=== PATIENT | male | born 1955 | race Caucasian/White ===

== ENCOUNTER 2016-10-11 11:37 | Day surgery (SDC) | payer MEDICAID ==
[2016-10-10 10:47] VITALS: BMI 27.0
[~2016-10-11 11:37] MED LIST: LACTATED RINGERS 1,000 ML IV SCH; LIDOCAINE 1% 20 ML VIAL (10MG/ML) FOR IV START INTRADERMA PRN
[2016-10-11 11:56] VITALS: RESP 16; TEMP 97.8
[2016-10-11] MEDS ORDERED: PROPOFOL 10 MG/ML 20 ML VIAL IV ONE (13:05)
--- NOTE | 2016-10-11 13:25 | P.OP ---
Date of Procedure: 10/11/16 Preoperative Diagnosis: Screening for colon cancer Postoperative Diagnosis: SLightly enlarged prostate NOrmal colon Procedure(s) Performed: Colonoscopy Anesthesia: EDWIN Surgeon: Morenita Law Condition: stable Disposition: PACU Operative Findings: Normla colon Fair to poor prep (poor prep in right colon, fair in the left side) slightly enlarged prostate Description of Procedure: The patient was brought to the endoscopy suite and placed in lateral decubitus position. IV sedation was given as per anesthesia team. A timeout was performed to verify correct patient and correct procedure.Perianal examination did not reveal any external hemorrhoids. Digital rectal examination was performed. A well-lubricated endoscope was passed per rectally and was gradually advanced beyond the sigmoid colon, splenic flexure, transverse colon, hepatic flexure and cecum. The ileocecal valve was visualized. Then no diverticulosis . Scope was gradually withdrawn inspecting all the mucosal surfaces. No polyps. Prep was poor in the right side and fair in the left side. Retroflexed in the rectum and was normal. The scope was gradually withdrawn. Patient tolerated the procedure well and was taken to post anesthesia care unit in stable condition. Recommend repeat colonoscopy in 5 years due to poor prep
[2016-10-11 13:49] VITALS: BP 126/79; PULSE 73
== END 2016-10-11 14:04 | disposition home or self-care (01) ==
LOC: ORWHC2ENDO 11:37
PROVIDERS: ATTEND Surgery
DX: Z12.11 Encounter for screening for malignant neoplasm of colon (principal); N40.0 Benign prostatic hyperplasia without lower urinary tract symptoms; F17.200 Nicotine dependence, unspecified, uncomplicated
CPT/HCPCS: J2704; G0121; 99153

== ENCOUNTER 2018-03-24 09:47 | Inpatient (IN) | payer MEDICAID ==
[2018-03-24] MEDS ORDERED: SODIUM CHLORIDE 0.9% 1,000 ML IV STA (09:51)
[2018-03-24 09:55] VITALS: RESP 18
--- NOTE | 2018-03-24 10:00 | ED ---
General Adult HPI - General Chief complaint: Neuro Symptoms/Deficit Stated complaint: poss cva Time Seen by Provider: 03/24/18 09:51 Source: patient, EMS, RN notes reviewed Mode of arrival: EMS Limitations: no limitations - History of Present Illness Initial comments: Patient is a pleasant 62-year-old male presenting to the emergency department with concern for stroke. EMS provides majority of history. Onset is reported at 9 AM. Patient felt fine earlier. Patient had reported sudden onset of symptoms. When EMS arrived patient was near unresponsive and only could verbalize "yes". Patient had bilateral arm weakness. Patient has significantly improved per EMS. Patient does have expressive aphasia. Patient does appear to understand well and when able to get the words out does answer appropriately. Patient is agreeable that onset of symptoms was around 9 AM and he felt fine prior to that. No history of similar symptoms previously. Patient states he does understand things well and agrees that he has difficulty getting his words out. Patient states he does not feel any weakness. No significant pain. Patient states he does not feel confused. - Related Data Home Medications Medication Instructions Recorded Confirmed No Known Home Medications [No 10/10/16 03/24/18 Known Home Medications] Allergies Allergy/AdvReac Type Severity Reaction Status Date / Time No Known Allergies Allergy Verified 03/24/18 10:08 Review of Systems ROS Statement: Those systems with pertinent positive or pertinent negative responses have been documented in the HPI. ROS Other: All systems not noted in ROS Statement are negative. Constitutional: Denies: fever Eyes: Denies: eye pain ENT: Denies: ear pain Respiratory: Denies: cough Cardiovascular: Denies: chest pain Endocrine: Denies: fatigue Gastrointestinal: Denies: abdominal pain Genitourinary: Denies: dysuria Musculoskeletal: Denies: back pain Skin: Denies: rash Neurological: Denies: headache, weakness, confusion Past Medical History Past Medical History: No Reported History History of Any Multi-Drug Resistant Organisms: None Reported Past Surgical History: Hernia Repair, Orthopedic Surgery Additional Past Surgical History / Comment(s): lt knee miniscus repair,bone chips lt ankle Past Anesthesia/Blood Transfusion Reactions: No Reported Reaction Additional Past Anesthesia/Blood Transfusion Reaction / Comment(s): no hx blood transfusion Past Psychological History: No Psychological Hx Reported Smoking Status: Current every day smoker Past Alcohol Use History: Occasional Past Drug Use History: None Reported - Past Family History Mother Family Medical History: Cancer Father Family Medical History: No Reported History General Exam Limitations: no limitations General appearance: alert, in no apparent distress, other (Patient has expressive aphasia. Patient is alert and very cooperative. Patient does have difficulty following some commands. Example includes difficulty with finger- nose test however he is able to perform the function when he does completed. Patient also told to lift and hold his leg and lifted and held his arm.) Head exam: Present: atraumatic Eye exam: Present: normal appearance, PERRL, EOMI. Absent: nystagmus ENT exam: Present: normal oropharynx Neck exam: Present: normal inspection Respiratory exam: Present: normal lung sounds bilaterally Cardiovascular Exam: Present: regular rate, normal rhythm GI/Abdominal exam: Present: soft. Absent: tenderness Extremities exam: Present: normal inspection Neurological exam: Present: alert, oriented X3, CN II-XII intact (Except for right facial droop). Absent: motor sensory deficit Expanded Neurological exam: Present: protecting the airway Patient oriented to: Present: person, place, time Speech: Present: expressive aphasia Cranial nerves: EOM's Intact: Normal, Facial Sensation: Normal, Facial Palsy with Forehead Movement: Abnormal Right Cerebellar function: Finger to Nose: Normal Sensory exam: Upper Extremity Light Touch: Normal, Lower Extremity Light Touch: Normal Motor strength exam: RUE: 5, LUE: 5, RLE: 5, LLE: 5 Eye Response: (4) open spontaneously Motor Response: (6) obeys commands Verbal Response: (5) oriented Psychiatric exam: Present: normal affect, normal mood Skin exam: Present: normal color Course Vital Signs 03/24/18 03/24/18 03/24/18 09:51 10:00 10:15 Temperature 97.8 F Pulse Rate 84 89 77 Respiratory 18 18 18 Rate Blood Pressure 161/107 146/92 164/97 O2 Sat by Pulse 98 99 Oximetry - Reevaluation(s) Reevaluation #1: 03/24/18 10:03 Further history taken from the who does confirm majority of the history. She does add however that last known well was 5:30 AM. She states patient went back to sleep and woke up at 9 AM and symptoms were noticed at that time. Last known well is now 4 and half hours and therefore patient is not a candidate for TPA. This is explained to . EKG Findings - EKG Comments: EKG Findings:: Normal sinus rhythm 81. WA 144. QRS 86. QT 380. QTC 441. Normal axis. Normal QRS. No acute ST change. Medical Decision Making - Medical Decision Making Patient reevaluated and is further improved. Patient still has some excessive aphasia however is minimal. Patient also has minimal slurred speech. Right face appears improved but may be minimally tube still. feels this appears normal. Patient and are updated on results and plan. she has been paged for admission for Dr. villegas, who admits for Dr. Sapp. - Lab Data Result diagrams: 03/24/18 09:55 03/24/18 09:55 Lab Results 03/24/18 03/24/18 03/24/18 Range/Units 09:55 09:55 09:55 WBC 12.8 H (3.8-10.6) k/uL RBC 5.56 (4.30-5.90) m/uL Hgb 16.3 (13.0-17.5) gm/dL Hct 50.1 (39.0-53.0) % MCV 90.1 (80.0-100.0) fL MCH 29.4 (25.0-35.0) pg MCHC 32.6 (31.0-37.0) g/dL RDW 13.8 (11.5-15.5) % Plt Count 346 (150-450) k/uL Neutrophils % 62 % Lymphocytes % 27 % Monocytes % 5 % Eosinophils % 5 % Basophils % 0 % Neutrophils # 7.9 H (1.3-7.7) k/uL Lymphocytes # 3.5 (1.0-4.8) k/uL Monocytes # 0.6 (0-1.0) k/uL Eosinophils # 0.6 (0-0.7) k/uL Basophils # 0.0 (0-0.2) k/uL PT 10.3 (9.0-12.0) sec INR 1.1 (<1.2) APTT 24.3 (22.0-30.0) sec Sodium 139 (137-145) mmol/L Potassium 5.3 H (3.5-5.1) mmol/L Chloride 106 (98-107) mmol/L Carbon Dioxide 21 L (22-30) mmol/L Anion Gap 12 mmol/L BUN 10 (9-20) mg/dL Creatinine 0.75 (0.66-1.25) mg/dL Est GFR (CKD-EPI)AfAm >90 (>60 ml/min/1.73 sqM) Est GFR (CKD-EPI)NonAf >90 (>60 ml/min/1.73 sqM) Glucose 117 H (74-99) mg/dL POC Glucose (mg/dL) (75-99) mg/dL POC Glu Wall Covering Installer ID Calcium 9.8 (8.4-10.2) mg/dL Total Bilirubin 1.5 H (0.2-1.3) mg/dL AST 38 (17-59) U/L ALT 31 (21-72) U/L Alkaline Phosphatase 87 (38-126) U/L Total Protein 8.0 (6.3-8.2) g/dL Albumin 4.5 (3.5-5.0) g/dL 03/24/18 Range/Units 09:59 WBC (3.8-10.6) k/uL RBC (4.30-5.90) m/uL Hgb (13.0-17.5) gm/dL Hct (39.0-53.0) % MCV (80.0-100.0) fL MCH (25.0-35.0) pg MCHC (31.0-37.0) g/dL RDW (11.5-15.5) % Plt Count (150-450) k/uL Neutrophils % % Lymphocytes % % Monocytes % % Eosinophils % % Basophils % % Neutrophils # (1.3-7.7) k/uL Lymphocytes # (1.0-4.8) k/uL Monocytes # (0-1.0) k/uL Eosinophils # (0-0.7) k/uL Basophils # (0-0.2) k/uL PT (9.0-12.0) sec INR (<1.2) APTT (22.0-30.0) sec Sodium (137-145) mmol/L Potassium (3.5-5.1) mmol/L Chloride (98-107) mmol/L Carbon Dioxide (22-30) mmol/L Anion Gap mmol/L BUN (9-20) mg/dL Creatinine (0.66-1.25) mg/dL Est GFR (CKD-EPI)AfAm (>60 ml/min/1.73 sqM) Est GFR (CKD-EPI)NonAf (>60 ml/min/1.73 sqM) Glucose (74-99) mg/dL POC Glucose (mg/dL) 128 H (75-99) mg/dL POC Glu Wall Covering Installer ID Krystal Duran Calcium (8.4-10.2) mg/dL Total Bilirubin (0.2-1.3) mg/dL AST (17-59) U/L ALT (21-72) U/L Alkaline Phosphatase (38-126) U/L Total Protein (6.3-8.2) g/dL Albumin (3.5-5.0) g/dL - Radiology Data Radiology results: report reviewed (Computed tomography scan of the brain reveals no acute abnormality. Mild patchy changes of chronic small vessel ischemia. CT angiogram of the head and neck shows mild changes carotid bifurcations. 9 mm short segment needed appearance of her left ICA. Prevascular Lymph node.), image reviewed (Chest x-ray shows no acute process) Disposition Clinical Impression: Cerebrovascular accident Disposition: ADMITTED IP TO THIS [facility] Condition: Serious Is patient prescribed a controlled substance at d/c from ED?: No Referrals: Anderson Sapp DO [Primary Care Provider] - 1-2 days Decision Time: 10:41
[2018-03-24 10:11] LABS: Basophils % (A) 0 %; Eosinophils # (A) 0.6 k/uL (0-0.7); Eosinophils % (A) 5 %; HCT 50.1 % (39.0-53.0); HGB 16.3 gm/dL (13.0-17.5); Lymphocytes # (A) 3.5 k/uL (1.0-4.8); Lymphocytes % (A) 27 %; MCH 29.4 pg (25.0-35.0); MCHC 32.6 g/dL (31.0-37.0); MCV 90.1 fL (80.0-100.0); Mean Platelet Volume 7.5; Monocytes # (A) 0.6 k/uL (0-1.0); Monocytes % (A) 5 %; Neutrophils # (A) 7.9 k/uL (1.3-7.7); Neutrophils % (A) 62 %; Platelet Count 346 k/uL (150-450); RBC 5.56 m/uL (4.30-5.90); RDW 13.8 % (11.5-15.5); WBC 12.8 k/uL (3.8-10.6)
[2018-03-24 10:19] LABS: ALT 31 U/L (21-72); AST 38 U/L (17-59); Albumin 4.5 g/dL (3.5-5.0); Alkaline Phosphatase 87 U/L (38-126); Anion Gap 12 mmol/L; Blood Urea Nitrogen 10 mg/dL (9-20); Calcium 9.8 mg/dL (8.4-10.2); Carbon Dioxide 21 mmol/L (22-30); Chloride 106 mmol/L (98-107); Glucose 117 mg/dL (74-99); INR 1.1 (<1.2); Partial Thromboplastin Time 24.3 sec (22.0-30.0); Prothrombin Time 10.3 sec (9.0-12.0); Sodium 139 mmol/L (137-145); Total Bilirubin 1.5 mg/dL (0.2-1.3)
--- NOTE | 2018-03-24 10:24 | CT ---
EXAMINATION TYPE: CT brain wo con for TPA DATE OF EXAM: 03/24/2018 COMPARISON: NONE HISTORY: 62-year-old male Neurologic deficits, speech difficulty and confusion TECHNIQUE: Examination was done in axial plane without intravenous contrast. Coronal and sagittal r econstructions performed. CT DLP: 1072.3 mGycm Automated exposure control for dose reduction was used. FINDINGS: There is no evidence of acute intracranial hemorrhage, acute ischemic changes, mass, mass-effect, or extra-axial fluid collection. There is no effacement of cerebral sulci or basal subarachnoid cister ns. There is no hydrocephalus. There is no midline shift. Christianson-white matter distinction is preserv ed. Some mild patchy subcortical white matter hypodensities likely relate to changes of chronic small ves linda ischemic disease. Mild to moderate mucosal thickening throughout the ethmoid air cells and maxillary sinuses and mild w ithin the frontal sinuses. Mastoid air cells well pneumatized. Orbits and globes are intact. IMPRESSION: 1. No acute intracranial abnormality seen. Some mild patchy changes of chronic small vessel ischemic disease. If symptoms persist, follow-up CT or MRI. 2. Mild to moderate chronic paranasal sinus disease.
[2018-03-24 10:29] LABS: Potassium 5.3 mmol/L (3.5-5.1)
[2018-03-24 10:31] LABS: Glucose,Whole Blood 128 mg/dL (75-99)
--- NOTE | 2018-03-24 10:34 | CT ---
EXAMINATION TYPE: CT angio head neck DATE OF EXAM: 03/24/2018 COMPARISON: Brain same day HISTORY: 62-year-old male neurologic deficits, confusion, difficulty speech TECHNIQUE: Contiguous axial scanning of the head and neck performed with IV Contrast, patient injecte d with 65 mL of Isovue 370. Coronal/sagittal MIP reconstructions performed. 3-D reconstructions gener ated on a dedicated workstation. CT DLP: 423.20 mGycm Automated exposure control for dose reduction was used. FINDINGS: Neck: Aorta normal caliber with conventional arch vessel branching anatomy. The right common carotid artery is patent. Mild atherosclerotic calcifications at the right carotid bifurcation without significant atherosclero tic narrowing at the right carotid bulb. Left common carotid artery is patent. Minimal atherosclerotic calcifications at the left carotid bifurcation without any significant stenos is. There is some beaded appearance to the uppermost left ICA for length of 9 mm, refer to coronal se joaquín 8 image 10 and 11. No significant narrowing of the ICA. The bilateral vertebral arteries are patent throughout their course. Bilateral palatine tonsillar tissue hypertrophy. Prominent 1 cm prevascular space lymph node Head: No large vessel intracranial occlusion. The vertebral, basilar, and internal carotid arteries are pa tent. No significant stenosis or aneurysmal change seen. Anterior and posterior circulations grossly patent. IMPRESSION: NECK: 1. MILD ATHEROSCLEROTIC CHANGES AT THE BILATERAL CAROTID BIFURCATIONS WITH MINIMAL, LESS THAN 15% ARABELLA ROWING AT THE RIGHT CAROTID BULB. NO SIGNIFICANT ICA STENOSIS ON EITHER SIDE. 2. A 9 MM SHORT SEGMENT OF BEADED APPEARANCE TO THE UPPER LEFT ICA CAN BE SEEN WITH FMD. 3. INCIDENTAL PROMINENT 1 CM PREVASCULAR SPACE LYMPH NODE. 3 MONTH FOLLOW-UP CT CHEST RECOMMENDED TO ENSURE STABILITY/RESOLUTION. HEAD: 1. NO LARGE VESSEL INTRACRANIAL OCCLUSION, SIGNIFICANT STENOSIS, OR ANEURYSMAL CHANGE SEEN.
[2018-03-24 10:38] LABS: Creatine Kinase 109 U/L (55-170)
[2018-03-24] MEDS ORDERED: ASPIRIN 325 MG TAB PO STA (10:41)
--- NOTE | 2018-03-24 10:48 | XR ---
EXAMINATION TYPE: XR chest 2V DATE OF EXAM: 03/24/2018 COMPARISON: NONE HISTORY: Altered mental status, speech difficulty TECHNIQUE: Frontal and lateral views of the chest are obtained. FINDINGS: There is no focal air space opacity, pleural effusion, or pneumothorax seen. The cardiac silhouette size is within normal limits. There is a spinal curvature present. There are overlying ca rdiac leads. The osseous structures are intact. IMPRESSION: No acute cardiopulmonary process.
[2018-03-24 10:51] LABS: Creatine Kinase MB 2.4 ng/mL (0.0-2.4); Troponin I <0.012 ng/mL (0.000-0.034)
[2018-03-24] MEDS: SODIUM CHLORIDE 0.9% 1,000 ML IV SCH ×2 (12:23→22:49)
--- NOTE | 2018-03-25 00:22 | P.HPIM ---
History of Present Illness H&P Date: 03/24/18 Chief Complaint: Slurred speech and right facial drooping Patient is a pleasant 62-year-old male without significant past medical history presenting to the emergency department with concern for stroke. Patient woke up around 3:30 AM in the morning and had difficulty moving. Patient got up and went to the bathroom and bump under the wall and was having difficulty ambulating. Patient also noted have right facial droop. Patient was having slurred speech as well. Apparently patient has been having right leg weakness and has been dragging for the past 5-6 days. Patient also felt nauseated and tired. When EMS arrived patient was near unresponsive and only could verbalize "yes". Patient had bilateral arm weakness. Patient has significantly improved per EMS. Patient does have expressive aphasia. Patient does appear to understand well and when able to get the words out does answer appropriately. Patient is agreeable that onset of symptoms was around 9 AM and he felt fine prior to that. No history of similar symptoms previously. Patient states he does understand things well and agrees that he has difficulty getting his words out. Patient states he does not feel any weakness. No significant pain. Patient states he does not feel confused now. CT head showed no acute intracranial abnormality. Some mild patchy changes of chronic small ischemic changes Mild to moderate chronic paranasal sinus disease CT angiogram showed no large vessel intracranial occlusion, significant stenosis or aneurysmal changes. Neurology was consulted. Review of Systems Constitutional: Patient denies any fever or chills . No generalized weakness or weight loss. Abdomen: Patient denied nausea vomiting and diarrhea and abdominal pain. Cardiovascular: Patient denies any chest pain or short of breath no palpitations. Respiratory: patient denied any cough is from production. No shortness of breath Neurologic: Patient denied any numbness or tingling headache. Musculoskeletal: Patient denies any complaints of joint swelling or deformity. Skin: Negative Psychiatric: Negative Endocrine: No heat or cold intolerance. No recent weight gain. Genitourinary: No dysuria or hematuria. All other 14 point ROS negative except the above Past Medical History Past Medical History: No Reported History History of Any Multi-Drug Resistant Organisms: None Reported Past Surgical History: Hernia Repair, Orthopedic Surgery Additional Past Surgical History / Comment(s): lt knee miniscus repair,bone chips lt ankle Past Anesthesia/Blood Transfusion Reactions: No Reported Reaction Additional Past Anesthesia/Blood Transfusion Reaction / Comment(s): no hx blood transfusion Past Psychological History: No Psychological Hx Reported Smoking Status: Current every day smoker Past Alcohol Use History: Occasional Past Drug Use History: None Reported - Past Family History Mother Family Medical History: Cancer Father Family Medical History: No Reported History Medications and Allergies Home Medications Medication Instructions Recorded Confirmed Type No Known Home Medications [No 10/10/16 03/24/18 History Known Home Medications] Allergies Allergy/AdvReac Type Severity Reaction Status Date / Time No Known Allergies Allergy Verified 03/24/18 10:08 Physical Exam Vitals: Vital Signs Temp Pulse Pulse Resp BP BP Pulse Ox 03/24/18 15:14 70 18 150/92 03/24/18 14:13 76 76 18 140/89 98 03/24/18 13:15 98.3 F 82 18 138/80 100 03/24/18 12:24 59 L 18 167/92 99 03/24/18 11:41 62 18 136/81 100 03/24/18 10:41 62 18 143/90 99 03/24/18 10:30 63 18 161/91 99 03/24/18 10:15 77 18 164/97 99 03/24/18 10:00 89 18 146/92 98 03/24/18 09:51 97.8 F 84 18 161/107 Intake and Output 03/24/18 03/24/18 03/24/18 06:59 14:59 22:59 Other: Weight 83.915 kg PHYSICAL EXAMINATION: Patient is lying in the bed comfortably, no acute distress, awake alert and oriented.. HEENT: Normocephalic. Neck is supple. Pupils reactive. Nostrils clear. Oral cavity is moist. Ears reveal no drainage. Neck reveals no JVD, carotid bruits, or thyromegaly. CHEST EXAMINATION: Trachea is central. Symmetrical expansion. Lung caba clear to auscultation and percussion. CARDIAC: Normal S1, S2 with no gallops. No murmurs ABDOMEN: Soft. Bowel sounds normal. No organomegaly. No abdominal bruits. Extremities: reveal no edema. No clubbing or cyanosis Neurologically awake, alert, oriented x3 with well-coordinated movements. No focal deficits noted Skin: No rash or skin lesions. Psychiatric: Cooperative. Nonsuicidal Musculoskeletal: No joint swelling or deformity. Normal range of motion. Results CBC & Chem 7: 03/24/18 09:55 03/24/18 09:55 Labs: Abnormal Lab Results - Last 24 Hours (Table) 03/24/18 03/24/18 03/24/18 Range/Units 09:55 09:55 09:59 WBC 12.8 H (3.8-10.6) k/uL Neutrophils # 7.9 H (1.3-7.7) k/uL Potassium 5.3 H (3.5-5.1) mmol/L Carbon Dioxide 21 L (22-30) mmol/L Glucose 117 H (74-99) mg/dL POC Glucose (mg/dL) 128 H (75-99) mg/dL Total Bilirubin 1.5 H (0.2-1.3) mg/dL Thrombosis Risk Factor Assmnt - DVT/VTE Prophylaxis DVT/VTE Prophylaxis: Pharmacologic Prophylaxis ordered Assessment and Plan Assessment: Gait instability with slurred speech and right facial droop. Resolving now. Likely due to TIA. Possible CVA. Currently everyday smoker DVT prophylaxis Patient will be continued on aspirin. Vascular surgery was consulted due to abnormal CT angiogram. Neurology is following. We will continue the current management and further recommendations based on the clinical course. Smoking cessation has been counseled extensively. Time with Patient: Greater than 30
[2018-03-25 06:38] LABS: Anion Gap 9 mmol/L; Blood Urea Nitrogen 10 mg/dL (9-20); Calcium 9.2 mg/dL (8.4-10.2); Carbon Dioxide 23 mmol/L (22-30); Chloride 108 mmol/L (98-107); Cholesterol 209 mg/dL (<200); Glucose 102 mg/dL (74-99); HDL Cholesterol 39 mg/dL (40-60); LDL Cholesterol,Calculated 136 mg/dL (0-99); Potassium 4.6 mmol/L (3.5-5.1); Sodium 140 mmol/L (137-145); Triglycerides 172 mg/dL (<150)
[2018-03-25] MEDS: SODIUM CHLORIDE 0.9% 1,000 ML IV SCH (06:58)
[2018-03-25] MEDS ORDERED: ASPIRIN 325 MG TAB PO SCH (09:00)
--- NOTE | 2018-03-25 09:07 | CONS ---
CONSULTATION DATE OF CONSULTATION: 03/24/2018 CHIEF COMPLAINT: Transient ischemic attack. HISTORY OF PRESENT ILLNESS: Mr. Holliday is a pleasant 62-year-old male, who is being evaluated today on 03/24/2018 by the neurology service per the request of Dr. Feldman for a transient ischemic attack. The patient was brought into [facility] Emergency Room after he had a sudden onset of difficulty speaking with right upper extremity numbness and tingling. The patient remembers that he knew what he wanted to say but the words would not come out. His also noticed that he had some right facial drooping. Her symptoms lasted approximately 2 hours and resolved spontaneously. He denies any previous episodes similar to this. The patient was not on any anti-platelet medications at home. He was started on aspirin [address] scan of the brain was done, which showed no acute findings. There was evidence of small vessel ischemic changes. His CT angiogram of the neck showed no significant stenosis, but there was an incidental finding of an enlarged lymph node. There was also a questionable finding beading in a short segment of the internal carotid artery. The CT angiogram of the head was normal. His CBC was normal except for mild leukocytosis at 12.8. His comprehensive metabolic profile showed mild hyperkalemia at 5.3, and elevated bilirubin at 1.5. His cardiac enzymes were negative. At the time of my evaluation, the patient is lying in his bed and appears to be in no acute distress. He denies any recurrence of any neurological symptoms. The patient denies any previous medical history, but his blood pressure was significantly elevated when he arrived to the emergency room at 161/107. PAST MEDICAL HISTORY: None reported. PAST SURGICAL HISTORY: Hernia repair and orthopedic surgeries. SOCIAL HISTORY: The patient is a current everyday smoker. He occasionally drinks alcohol. He denies any drug use. FAMILY HISTORY: Positive for cancer. HOME MEDICATIONS: None. ALLERGIES: No known drug allergies. REVIEW OF SYSTEMS: CONSTITUTIONAL: Negative. EYES: Negative. ENT: Negative. CARDIOVASCULAR: Negative. RESPIRATORY: Negative. NEUROLOGICAL: As mentioned above. GASTROINTESTINAL: Negative. GENITOURINARY: Negative. PSYCHIATRIC: Negative. MUSCULOSKELETAL: Positive for occasional joint pain. ENDOCRINE: Negative. DERMATOLOGICAL: Negative. PHYSICAL EXAM: Vital signs show a temperature of 97.8, pulse 75, respiration 18, blood pressure 142/92. GENERAL APPEARANCE: The patient is a well-developed, elderly male who appears to be in no acute distress. HEENT: Normocephalic, atraumatic. No facial asymmetry is seen. Neck is supple with no masses felt. CARDIOVASCULAR: Regular rate and rhythm. ABDOMEN: Nontender, nondistended. Extremities showed no edema or clubbing. NEUROLOGICAL EXAM: The patient is alert, aware and oriented x3. Speech and language are normal. Strength is full in all 4 extremities. Sensory exam was normal to light touch in all 4 extremities. No pronator drift is seen. No tremors or seizure-like activity is noticed. No facial asymmetry is seen on cranial nerve testing. IMPRESSION: 1. Transient ischemic attack. 2. Expressive aphasia, resolved. 3. Right upper extremity numbness, resolved. 4. Hypertension, new diagnosis. 5. Tobacco dependence. 6. Abnormal CT angiogram of the neck. RECOMMENDATION: The patient does appear to have suffered a transient ischemic attack with a transient episode of expressive aphasia and right-sided numbness. The transient ischemia was likely affecting the left middle cerebral artery, more specifically affecting the frontal . He has been started on aspirin 325 mg daily. His blood pressure was significantly elevated when he arrived to the emergency room as mentioned above. I do recommend starting antihypertensive medications. I will order a fasting lipid panel, EEG, and serum homocystine level. As for his questionable beading seen on his CT angiogram of the neck, this is likely insignificant, but I will consult Vascular Surgery. The patient was counseled on tobacco cessation. Also, consider further followup regarding his lymph node enlargement seen on his CT angiogram of the neck. Continue the rest of your current workup and management. I will continue to follow with you. Further recommendations to follow. Thank you for allowing me to participate in the care of your patient. If you have any questions, please feel free to contact me. MMODL / IJN: [id number] /
--- NOTE | 2018-03-25 11:12 | ECHOF ---
Referral Reason:Thrombus MEASUREMENTS -------- HEIGHT: 175.3 cm WEIGHT: 83.9 kg BP: IVSd: 1.3 cm (0.6 - 1.1) LVIDd: 3.3 cm (3.9 - 5.3) LVPWd: 1.3 cm (0.6 - 1.1) IVSs: 1.5 cm LVIDs: 2.9 cm LVPWs: 1.5 cm LA Diam: 3.4 cm (2.7 - 3.8) LAESV Index (A-L): 16.89 ml/m Ao Diam: 2.9 cm (2.0 - 3.7) AV Cusp: 1.7 cm (1.5 - 2.6) LA Diam: 3.4 cm (2.7 - 3.8) MV EXCURSION: 11.388 mm (> 18.000) MV EF SLOPE: 39 mm/s (70 - 150) EPSS: 1.0 cm MV E Ashu: 0.36 m/s MV DecT: 238 ms MV A Ashu: 0.80 m/s MV E/A Ratio: 0.45 RAP: 5.00 mmHg RVSP: 14.52 mmHg FINDINGS -------- Sinus rhythm. This was a techncally difficult study with suboptimal views, , Lumason utilized for enhancement of im ages. The left ventricular size is normal. There is mild concentric left ventricular hypertrophy. Overa ll left ventricular systolic function is moderate-severely impaired with, an EF between 30 - 35 %. Anterseptal Hypokinesis [place] Hypokinesis. Hypokinesis inferior Distal. The right ventricle is normal in size. The left atrial size is normal. The right atrial size is normal. There is mild aortic valve sclerosis. There is no evidence of aortic regurgitation. Mild mitral annular calcification present. Mild mitral regurgitation is present. Mild tricuspid regurgitation present. There is no evidence of pulmonary hypertension. The right v entricular systolic pressure, as measured by Doppler, is 14.52mmHg. There is no pulmonic regurgitation present. The aortic root size is normal. There is no pericardial effusion. CONCLUSIONS -------- 1. This was a techncally difficult study with suboptimal views, , Lumason utilized for enhancement of images. 2. The left ventricular size is normal. 3. There is mild concentric left ventricular hypertrophy. 4. Overall left ventricular systolic function is moderate-severely impaired with, an EF between 30 - 35 %. 5. Anterseptal Hypokinesis 6. [place] Hypokinesis. 7. Hypokinesis inferior Distal. 8. The right ventricle is normal in size. 9. The left atrial size is normal. 10. The right atrial size is normal. 11. There is mild aortic valve sclerosis. 12. Mild mitral annular calcification present. 13. Mild mitral regurgitation is present. 14. Mild tricuspid regurgitation present. 15. There is no evidence of pulmonary hypertension. 16. The right ventricular systolic pressure, as measured by Doppler, is 14.52mmHg. 17. There is no pulmonic regurgitation present. 18. The aortic root size is normal. 19. There is no pericardial effusion. ASSEMBLER PIANO: Amy Lay RDCS
--- NOTE | 2018-03-25 14:43 | CONS ---
DATE OF CONSULTATION: 03/25/2018 This is a 62-year-old gentleman who has been admitted to [facility] with history of sudden onset of loss of speech with some right arm numbness that lasted for hour and half to 2 hours with complete recovery. No history of seizure. No history of loss of vision. No history of any motor deficit and this is the 1st episode that happened to him. The patient has no history of diabetes, hypertension, coronary artery disease. He is in good health otherwise. The patient had a CT scan. No infarct noted. CTA of the carotid shows right carotid has some mild atherosclerosis, no hemodynamically significant stenosis. Left carotid CTA was reviewed with the radiologist, which shows some plaque formation noted of the left internal and common carotid artery. At the C2 level there is some tortuosity noted of the internal carotid artery without hemodynamically significant stenosis. There is no evidence of fibromuscular dysplasia or dissection of the internal carotid artery. EXAMINATION: Patient was seen in his room. He is lying comfortably in bed. NECK: Supple. No bruit appreciated. CHEST: Clear to auscultation. First and second sounds normal. ABDOMEN: Soft, nontender. VASCULAR EXAMINATION: Brachial, radial and femoral pulses are present. CENTRAL NERVOUS SYSTEM: Oriented to time and place. Good motor function upper and lower extremity. PLAN: Patient is on antiplatelet therapy. We will continue. At this point I see no evidence of any critical stenosis of the internal carotid artery. There is small area of tortuosity of the internal carotid seen at C2 level which is above the mandible. I will discuss with Internal Medicine. The patient should be on antiplatelet therapy. At this point, I see no role of any surgical intervention. We will follow closely during stay in the hospital and then I will follow in my office when he is discharged. I have discussed this case with the patient and the . MMODL / IJN: [id number] / MARCELO
[2018-03-25 15:50] VITALS: BP 151/90; PULSE 76; TEMP 97.6
--- NOTE | 2018-03-25 16:21 | P.PN ---
Subjective Progress Note Date: 03/25/18 Patient is a pleasant 62-year-old male who is being followed by the neurology service for transient ischemic attack. Patient had sudden onset of difficulty speaking with right upper extremity numbness and tingling. Patient and state symptoms lasted approximately 2 hours and resolved continuously. Patient came to [facility] for further evaluation. Patient was started on aspirin 325 mg daily. Computed tomography scan of the brain showed no acute findings. Computed tomography scan of the brain showed small vessel ischemic changes. CT angiogram of the neck showed no significant stenosis. CT angios of the neck showed possible enlarged lymph node. CT angiogram of the neck also showed questionable area of beating and short segment of the internal carotid artery. The CT angiogram of the head was normal. A vascular consult was obtained for questionable finding in the internal carotid artery. Vascular consult obtained and patient will be treated with antiplatelet therapy. No surgical intervention is planned. At the time of my evaluation, patient's resting comfortably in bed and appears to be in no acute distress. Objective - Vital Signs Vital signs: Vital Signs Temp 97.6 F 03/25/18 15:50 Pulse 76 03/25/18 15:50 Resp 18 03/25/18 15:50 BP 151/90 03/25/18 15:50 Pulse Ox 95 03/25/18 15:50 Intake & Output 03/24/18 03/25/18 03/25/18 18:59 06:59 18:59 Intake Total 720 Balance 720 Weight 83.915 kg Intake: Oral 720 Other: Voiding Method Toilet Toilet # Voids 1 - Exam PHYSICAL EXAM: GENERAL APPEARANCE: Patient is a well-developed, male who appears to be in no acute distress. HEENT: Normocephalic, atraumatic, no facial asymmetry is seen. Neck is supple with no masses felt. CARDIOVASCULAR: Regular rate and rhythm. ABDOMEN: Nontender, nondistended. EXTREMITIES: Show no edema or clubbing. NEUROLOGICAL EXAM: Patient is awake, alert, and oriented 3. Speech and language are normal. Strength is full in all 4 extremities. Sensory exam to to light touch is normal in all 4 extremities. No facial asymmetry is seen on cranial nerve testing. No tremors or seizure-like activity noted. No pronator drift is noted. - Labs CBC & Chem 7: 03/24/18 09:55 03/25/18 06:17 Labs: Abnormal Lab Results - Last 24 Hours (Table) 03/25/18 Range/Units 06:17 Chloride 108 H (98-107) mmol/L Glucose 102 H (74-99) mg/dL Triglycerides 172 H (<150) mg/dL Cholesterol 209 H (<200) mg/dL LDL Cholesterol, Calc 136 H (0-99) mg/dL HDL Cholesterol 39 L (40-60) mg/dL Assessment and Plan Plan: Impression: 1. Transient ischemic attack 2. Expressive aphasia, resolved 3. Right upper extremity numbness, resolved 4. Hypertension 5. Abnormal CT angiogram of the neck 6. Tobacco use Recommendation: Patient does appear to have suffered a transient ischemic attack with a transient episode of expressive aphasia and right-sided numbness. No recurrence of symptoms since admission. I recommend continuing aspirin 325 mg daily. I recommend strict blood pressure control as his blood pressure was elevated on admission. EEG was done and results are pending. Lipid panel shows elevated triglycerides, elevated cholesterol, and elevated LDL. Lipid panel reveals low HDL as well . serum homocystine level is pending. As previously mentioned, computed tomography scan of the brain was negative for any acute process. CTA of the neck revealed an internal carotid artery abnormality and vascular was consulted. No surgery is planned at this time. Continue medical management. Continue neurological checks. Patient is stable from a neurological standpoint for discharge. I will continue to follow with you. Further recommendations to follow. I performed an examination of the patient and discussed the management with the MEDICAL STAFF SERVICES COORDINATOR. I have reviewed the MEDICAL STAFF SERVICES COORDINATOR notes and agree with the findings and plan of care.
--- NOTE | 2018-03-25 18:49 | EEG ---
ELECTROENCEPHALOGRAM REPORT DATE OF SERVICE: 03/25/2018 REASON FOR TESTING: Stroke. DESCRIPTION OF THE PROCEDURE: This EEG was performed using a 21-channel digital electroencephalograph, following international 10-20 system. DESCRIPTION OF THE RECORDING: From the beginning of the tracing, and with the patient's eyes closed, the background rhythm was mostly consisting of 8-9 Hz alpha frequency in the posterior occipital leads. No obvious asymmetry is seen. Photic stimulation was performed with a good driving response seen. No pathological waves were elicited. Hyperventilation was not performed. Occasional movement artifacts are seen. The patient does reach stage II of sleep during the tracing and occasional sleep spindles are seen. No epileptiform discharges were seen. His EKG lead showed a regular rate and rhythm. INTERPRETATION: This asleep and awake EEG can be considered within normal limits. There was no asymmetry seen. No epileptiform discharges were noticed. The absence of epileptiform discharges does not rule out the diagnosis of epilepsy; therefore clinical correlation is recommended. BABS / KELSIE: [id number] /
--- NOTE | 2018-03-25 22:32 | DS ---
DISCHARGE SUMMARY FINAL DIAGNOSES: 1. Slurring of speech, possible acute transient ischemic attack with facial droop. 2. History of nicotine dependence. 3. History of nephrolithiasis. 4. History of hernia repair. DISCHARGE DISPOSITION: The patient is being discharged in stable condition with guarded prognosis. HISTORY: This 62-year-old gentleman with a past medical history of multiple medical problems was admitted with slurring of speech and facial droop. Neurovascular workup was unremarkable except some tortuosity noted in the carotid artery without any significant stenosis by Dr. Tyler. Recommend antiplatelets. Seen by Neurology. The patient improved significantly and the patient is being discharged. The patient also had hyperlipidemia and cholesterol is 209 and LDL is 136. DISCHARGE DISPOSITION: The patient is being discharge in stable condition with guarded prognosis. On exam vitals are stable. ABDOMEN: Soft. CARDIOVASCULAR: S1 and S2. NERVOUS SYSTEM: No focal deficits. DISCHARGE ADVICE AND MEDICATIONS: 1. Diet is cardiac diet. 2. Activity limited until followup. 3. Follow up with Dr. Sapp in 2 to 3 days. 4. Follow with Dr. Tolbert and Dr. Tyler as advised. MEDICATIONS: 1. Lipitor 10 mg q.h.s. 2. Aspirin 320 mg p.o. daily. Once again, the patient is being discharged in stable condition with guarded prognosis. MMODL / IJN: [id number] /
== END 2018-03-25 17:15 | disposition home or self-care (01) | DRG 69 ==
LOC: EC 09:47 → 6SEL 10:41
PROVIDERS: ADMIT Hospitalist; ATTEND Hospitalist
DX: G45.9 Transient cerebral ischemic attack, unspecified (principal); R47.01 Aphasia; R29.810 Facial weakness; R29.704 NIHSS score 4; E78.5 Hyperlipidemia, unspecified; E87.5 Hyperkalemia; I10 Essential (primary) hypertension; Z71.6 Tobacco abuse counseling; Z87.442 Personal history of urinary calculi; Z98.890 Other specified postprocedural states; Z72.0 Tobacco use
CPT/HCPCS: 36415; 70450; 70496; 70498; 71046; 80048; 80053; 80061; 82550; 82553; 83090; 84484; 85025; 85610; 85730; 93005; 93306; 95819; 99285

== ENCOUNTER → 2018-03-28 | Outpatient (CLI) | payer MEDICAID ==
[2018-03-28 10:07] LABS: ALT 44 U/L (21-72); AST 29 U/L (17-59); Albumin 4.4 g/dL (3.5-5.0); Alkaline Phosphatase 89 U/L (38-126); Anion Gap 10 mmol/L; Blood Urea Nitrogen 18 mg/dL (9-20); Calcium 9.8 mg/dL (8.4-10.2); Carbon Dioxide 27 mmol/L (22-30); Chloride 103 mmol/L (98-107); Glucose 183 mg/dL (74-99); Potassium 4.8 mmol/L (3.5-5.1); Sodium 140 mmol/L (137-145); Total Bilirubin 0.7 mg/dL (0.2-1.3); Total Protein 7.4 g/dL (6.3-8.2)
[2018-03-28 10:09] LABS: Basophils # (A) 0.1 k/uL (0-0.2); Basophils % (A) 1 %; Eosinophils # (A) 0.4 k/uL (0-0.7); Eosinophils % (A) 4 %; HCT 50.6 % (39.0-53.0); HGB 16.1 gm/dL (13.0-17.5); Lymphocytes # (A) 4.2 k/uL (1.0-4.8); Lymphocytes % (A) 35 %; MCH 29.3 pg (25.0-35.0); MCHC 31.8 g/dL (31.0-37.0); MCV 92.2 fL (80.0-100.0); Mean Platelet Volume 7.2; Monocytes # (A) 0.6 k/uL (0-1.0); Monocytes % (A) 5 %; Neutrophils # (A) 6.6 k/uL (1.3-7.7); Neutrophils % (A) 55 %; Platelet Count 347 k/uL (150-450); RBC 5.48 m/uL (4.30-5.90); RDW 13.9 % (11.5-15.5); WBC 12.1 k/uL (3.8-10.6)
== END | disposition home or self-care (01) ==
LOC: LABWHC1 09:33
PROVIDERS: ATTEND Nurse Practitioner
DX: G45.9 Transient cerebral ischemic attack, unspecified (principal)
CPT/HCPCS: 36415; 80053; 85025

== ENCOUNTER → 2018-09-26 | Outpatient (CLI) | payer MEDICAID ==
[2018-09-26 16:38] LABS: Hemoglobin A1C 6.5 % (4.0-6.0)
== END ==
LOC: LABWHC1 08:49
PROVIDERS: ATTEND Family Medicine
DX: Z00.00 Encounter for general adult medical examination without abnormal findings (principal); R73.9 Hyperglycemia, unspecified; Z79.899 Other long term (current) drug therapy
CPT/HCPCS: 36415; 80061; 83036; 84450; 84460

== ENCOUNTER → 2019-05-12 | Outpatient (CLI) | payer MEDICAID ==
--- NOTE | 2019-05-12 16:12 | XR ---
EXAMINATION TYPE: XR chest 2V DATE OF EXAM: 05/12/2019 COMPARISON: Prior chest 03/24/2018 HISTORY: abnormal weight loss TECHNIQUE: Frontal and lateral views of the chest are obtained. FINDINGS: There is no focal air space opacity, pleural effusion, or pneumothorax seen. The cardiac silhouette size is within normal limits. The osseous structures are intact. IMPRESSION: No acute cardiopulmonary process.
== END | disposition home or self-care (01) ==
LOC: RADXRMAIN 14:48
PROVIDERS: ATTEND Family Medicine
DX: R63.4 Abnormal weight loss (principal)
CPT/HCPCS: 71046

== ENCOUNTER 2019-07-27 05:24 | Inpatient (IN) | payer MEDICAID, MEDICARE ==
[2019-07-27] MEDS ORDERED: SODIUM CHLORIDE 0.9% 1,000 ML IV STA ×2 (06:16)
[2019-07-27] MEDS ORDERED: ONDANSETRON 4 MG/2 ML VIAL IVP STA (06:16)
[2019-07-27] MEDS ORDERED: MECLIZINE 12.5 MG TAB PO STA (06:16)
--- NOTE | 2019-07-27 06:23 | ED ---
Dizziness HPI - General Chief Complaint: Dizziness Stated Complaint: Dizziness Time Seen by Provider: 07/27/19 06:06 Source: family, RN notes reviewed, old records reviewed Mode of arrival: wheelchair Limitations: no limitations - History of Present Illness Initial Comments: This Patient is a 64-year-old male, presents emergency department today for eval uation for chief complaint of dizziness. Symptoms started when he bent over to tie his shoes 2 days ago. Patient reports the dizziness is worse with turning his head in certain positions. Denies any chest pain or shortness of breath. He states that history of TIA. is on Lipitor and a daily aspirin. Patient states that he has had no other significant symptoms. Upon further questioning Patient states he did have an episode of chest pain last week, he states at that time he took a Pepcid and his chest pain went away. - Related Data Home Medications Medication Instructions Recorded Confirmed Famotidine [Pepcid AC] 10 mg PO HS PRN 07/27/19 07/27/19 Famotidine [Pepcid AC] 10 mg PO QAM 07/27/19 07/27/19 Previous Rx's Medication Instructions Recorded Aspirin 325 mg PO DAILY #30 tab 03/25/18 Atorvastatin Calcium [Lipitor] 10 mg PO HS #30 tab 03/25/18 Allergies Allergy/AdvReac Type Severity Reaction Status Date / Time No Known Allergies Allergy Verified 07/27/19 07:32 Review of Systems ROS Statement: Those systems with pertinent positive or pertinent negative responses have been documented in the HPI. ROS Other: All systems not noted in ROS Statement are negative. Past Medical History Past Medical History: Diabetes Mellitus Additional Past Medical History / Comment(s): kidney stones History of Any Multi-Drug Resistant Organisms: None Reported Past Surgical History: Hernia Repair, Orthopedic Surgery Additional Past Surgical History / Comment(s): lt knee miniscus repair,bone chips lt ankle Past Anesthesia/Blood Transfusion Reactions: No Reported Reaction Additional Past Anesthesia/Blood Transfusion Reaction / Comment(s): no hx blood transfusion Past Psychological History: No Psychological Hx Reported Smoking Status: Current every day smoker Past Alcohol Use History: Occasional Past Drug Use History: None Reported - Past Family History Mother Family Medical History: Cancer Father Family Medical History: No Reported History General Exam - General Exam Comments Initial Comments: Patient a pleasant 64-year-old male. Alert and oriented 3.Continue distress. General: Well appearing, well nourished, in no distress. Oriented x 3, normal m ood and affect . Ambulating without difficulty. Skin: Good turgor, no rash, unusual bruising or prominent lesions Hair: Normal texture and distribution. HEENT: Head: Normocephalic, atraumatic, no visible or palpable masses, depressions, or scaring. Eyes: Visual acuity intact, conjunctiva clear, some nystagmus noted on right lateral gaze. Ears: EACs clear, TMs translucent & cone of light visualized. hearing intact. Nose: No external lesions, mucosa non-inflamed, septum and turbinates normal Mouth: Mucous membranes moist, no mucosal lesions. Teeth/Gums: No obvious caries or periodontal disease. No gingival inflammation or significant resorption. Pharynx: Mucosa non-inflamed, no tonsillar hypertrophy or exudate Neck: Supple, without lesions, bruits, or adenopathy, thyroid non-enlarged and non-tender Heart: No cardiomegaly or thrills; regular rate and rhythm, no murmur or gallop Lungs: Clear to auscultation and percussion Abdomen: Bowel sounds normal, no tenderness, organomegaly, masses, or hernia Back: Spine normal without deformity or tenderness, no CVA tenderness Musculoskeletal: Normal gait and station. No misalignment, asymmetry, crepitation, defects, tenderness, masses, effusions, decreased range of motion, instability, atrophy or abnormal strength or tone in the head, neck, spine, ribs, pelvis or extremities. Neurologic: CN 2-12 normal. Sensation to pain, touch, and proprioception normal. Finger to nose intact. No over shooting. DTRs normal in upper and lower extremities. No pathologic reflexes. Psychiatric: Oriented X3, intact recent and remote memory, judgment and insight, normal mood and affect. Limitations: no limitations Course Vital Signs 07/27/19 07/27/19 07/27/19 05:30 07:33 08:26 Temperature 97.9 F Pulse Rate 80 71 65 Respiratory 20 16 16 Rate Blood Pressure 129/78 143/92 129/91 O2 Sat by Pulse 97 97 98 Oximetry EKG Findings - EKG Comments: EKG Findings:: Patient EKG performed at 5:40 AM shows normal sinus rhythm normal EKG. Ventricular rate of 75 bpm. Of 148 ms. QRS duration is 94 ms. QT QTc is 400/446 ms. Medical Decision Making - Medical Decision Making This patient's a 64-year-old male presents emergency department today with chief complaint of dizziness, with turning his head for the past 2 days. Patient states that he is just feeling "off". Patient symptoms seem be consistent more of vertigo. He did have some nystagmus on right lateral gaze. Patient also complains of mild headache. We did a full evaluation, including CT of the brain. This was negative for any acute process. Patient's EKG showed no acute changes. Blood work was obtained. Incidentally Patient was found have an elevated troponin. Upon further questioning he reports he's had an episode of chest pain last week. His EKG shows no ST changes at this time. Patient was started on IV heparin, discussed that Patient admitted for cardiology evaluation. 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 He reports he has been taking his daily aspirin and Lipitor as prescribed. Patient is agreeable to admission. Discussed the case with Dr. Jerez. - Lab Data Result diagrams: 07/27/19 05:55 07/27/19 05:55 Lab Results 07/27/19 07/27/19 07/27/19 Range/Units 05:55 05:55 05:55 WBC 13.4 H (3.8-10.6) k/uL RBC 5.35 (4.30-5.90) m/uL Hgb 16.0 (13.0-17.5) gm/dL Hct 48.6 (39.0-53.0) % MCV 90.8 (80.0-100.0) fL MCH 29.9 (25.0-35.0) pg MCHC 32.9 (31.0-37.0) g/dL RDW 13.8 (11.5-15.5) % Plt Count 408 (150-450) k/uL Neutrophils % 55 % Lymphocytes % 28 % Monocytes % 6 % Eosinophils % 9 % Basophils % 1 % Neutrophils # 7.3 (1.3-7.7) k/uL Lymphocytes # 3.7 (1.0-4.8) k/uL Monocytes # 0.8 (0-1.0) k/uL Eosinophils # 1.2 H (0-0.7) k/uL Basophils # 0.1 (0-0.2) k/uL PT 10.5 (9.0-12.0) sec INR 1.0 (<1.2) Sodium 142 (137-145) mmol/L Potassium 4.8 (3.5-5.1) mmol/L Chloride 109 H (98-107) mmol/L Carbon Dioxide 23 (22-30) mmol/L Anion Gap 10 mmol/L BUN 15 (9-20) mg/dL Creatinine 0.81 (0.66-1.25) mg/dL Est GFR (CKD-EPI)AfAm >90 (>60 ml/min/1.73 sqM) Est GFR (CKD-EPI)NonAf >90 (>60 ml/min/1.73 sqM) Glucose 104 H (74-99) mg/dL Calcium 9.7 (8.4-10.2) mg/dL Total Bilirubin 1.0 (0.2-1.3) mg/dL AST 30 (17-59) U/L ALT 33 (21-72) U/L Alkaline Phosphatase 102 (38-126) U/L Troponin I (0.000-0.034) ng/mL Total Protein 7.6 (6.3-8.2) g/dL Albumin 4.2 (3.5-5.0) g/dL Urine Color Urine Appearance (Clear) Urine pH (5.0-8.0) Ur Specific [place] (1.001-1.035) Urine Protein (Negative) Urine Glucose (UA) (Negative) Urine Ketones (Negative) Urine Blood (Negative) Urine Nitrite (Negative) Urine Bilirubin (Negative) Urine Urobilinogen (<2.0) mg/dL Ur Leukocyte Esterase (Negative) 07/27/19 07/27/19 Range/Units 05:55 07:25 WBC (3.8-10.6) k/uL RBC (4.30-5.90) m/uL Hgb (13.0-17.5) gm/dL Hct (39.0-53.0) % MCV (80.0-100.0) fL MCH (25.0-35.0) pg MCHC (31.0-37.0) g/dL RDW (11.5-15.5) % Plt Count (150-450) k/uL Neutrophils % % Lymphocytes % % Monocytes % % Eosinophils % % Basophils % % Neutrophils # (1.3-7.7) k/uL Lymphocytes # (1.0-4.8) k/uL Monocytes # (0-1.0) k/uL Eosinophils # (0-0.7) k/uL Basophils # (0-0.2) k/uL PT (9.0-12.0) sec INR (<1.2) Sodium (137-145) mmol/L Potassium (3.5-5.1) mmol/L Chloride (98-107) mmol/L Carbon Dioxide (22-30) mmol/L Anion Gap mmol/L BUN (9-20) mg/dL Creatinine (0.66-1.25) mg/dL Est GFR (CKD-EPI)AfAm (>60 ml/min/1.73 sqM) Est GFR (CKD-EPI)NonAf (>60 ml/min/1.73 sqM) Glucose (74-99) mg/dL Calcium (8.4-10.2) mg/dL Total Bilirubin (0.2-1.3) mg/dL AST (17-59) U/L ALT (21-72) U/L Alkaline Phosphatase (38-126) U/L Troponin I 0.128 H* (0.000-0.034) ng/mL Total Protein (6.3-8.2) g/dL Albumin (3.5-5.0) g/dL Urine Color Light Yellow Urine Appearance Clear (Clear) Urine pH 6.5 (5.0-8.0) Ur Specific [place] 1.011 (1.001-1.035) Urine Protein Negative (Negative) Urine Glucose (UA) Negative (Negative) Urine Ketones Negative (Negative) Urine Blood Negative (Negative) Urine Nitrite Negative (Negative) Urine Bilirubin Negative (Negative) Urine Urobilinogen <2.0 (<2.0) mg/dL Ur Leukocyte Esterase Negative (Negative) - Radiology Data Radiology results: report reviewed CT brain is negative for any acute findings. Chest pain as a negative for any acute process. Correlating for COPD. Disposition Clinical Impression: NSTEMI (non-ST elevation myocardial infarction), Vertigo Disposition: ADMITTED IP TO THIS HOSP Condition: Stable Is patient prescribed a controlled substance at d/c from ED?: No Referrals: Anderson Sapp DO [Primary Care Provider] - 1-2 days Time of Disposition: 08:31
[2019-07-27 06:40] LABS: Basophils # (A) 0.1 k/uL (0-0.2); Basophils % (A) 1 %; Eosinophils # (A) 1.2 k/uL (0-0.7); Eosinophils % (A) 9 %; HCT 48.6 % (39.0-53.0); Lymphocytes # (A) 3.7 k/uL (1.0-4.8); Lymphocytes % (A) 28 %; MCH 29.9 pg (25.0-35.0); MCHC 32.9 g/dL (31.0-37.0); MCV 90.8 fL (80.0-100.0); Mean Platelet Volume 6.7; Monocytes # (A) 0.8 k/uL (0-1.0); Monocytes % (A) 6 %; Neutrophils # (A) 7.3 k/uL (1.3-7.7); Neutrophils % (A) 55 %; Platelet Count 408 k/uL (150-450); RBC 5.35 m/uL (4.30-5.90); RDW 13.8 % (11.5-15.5); WBC 13.4 k/uL (3.8-10.6)
[2019-07-27 06:43] LABS: Prothrombin Time 10.5 sec (9.0-12.0)
[2019-07-27 06:52] LABS: ALT 33 U/L (21-72); AST 30 U/L (17-59); African American GFR (CKD) >90 (>60 ml/min/1.73 sqM); Albumin 4.2 g/dL (3.5-5.0); Alkaline Phosphatase 102 U/L (38-126); Anion Gap 10 mmol/L; Blood Urea Nitrogen 15 mg/dL (9-20); Calcium 9.7 mg/dL (8.4-10.2); Carbon Dioxide 23 mmol/L (22-30); Chloride 109 mmol/L (98-107); Glucose 104 mg/dL (74-99); Potassium 4.8 mmol/L (3.5-5.1); Sodium 142 mmol/L (137-145); Total Protein 7.6 g/dL (6.3-8.2)
--- NOTE | 2019-07-27 07:09 | XR ---
EXAMINATION TYPE: XR chest 2V DATE OF EXAM: 07/27/2019 COMPARISON: 05/12/2019 TECHNIQUE: PA and lateral views submitted. HISTORY: Dizziness FINDINGS: The lungs are clear and there is no pneumothorax, pleural effusion, or focal pneumonia. Mild hyperi nflation. No overt failure. Arthropathy of the shoulders. IMPRESSION: 1. No acute process. Correlate for COPD.
--- NOTE | 2019-07-27 07:23 | CT ---
EXAM: CT Head Without Intravenous Contrast CLINICAL HISTORY: dizziness, pain. TECHNIQUE: Axial computed tomography images of the head/brain without intravenous contrast. This CT exam was performed using one or more of the following dose reduction techniques: automated exposure control, adjustment of the mA and/or kV according to patient size, and/or use of iterative reconstruction technique. CTDI 50 DLP 1099. COMPARISON: March 24, 2018. FINDINGS: Brain: Unremarkable. No hemorrhage. Age-appropriate white matter appearance. No CT evidence of acute infarct. Ventricles: Unremarkable. No ventriculomegaly. Bones/joints: Unremarkable. No acute fracture. Soft tissues: Unremarkable. Sinuses: Mild chronic sinus disease. Mastoid air cells: Unremarkable as visualized. No mastoid effusion. IMPRESSION: No acute findings.
[2019-07-27 07:40] LABS: Appearance,Urine Clear (Clear); Bilirubin,Urine Negative (Negative); Blood,Urine Negative (Negative); Color,Urine Light Yellow; Glucose,Urine (UA) Negative (Negative); Ketones,Urine Negative (Negative); Leukocyte Esterase,Urine Negative (Negative); Nitrite,Urine Negative (Negative); PH, Urine 6.5 (5.0-8.0); Protein,Urine Negative (Negative); Specific Gravity,Urine 1.011 (1.001-1.035); Urobilinogen,Urine <2.0 mg/dL (<2.0)
[2019-07-27] MEDS ORDERED: HEPARIN SODIUM,PORCINE 5,000 UNIT/ML 1 ML VIAL IV ONE (08:06)
[2019-07-27] MEDS ORDERED: ASPIRIN 81 MG PO STA (08:06)
[2019-07-27] MEDS ORDERED: NITROGLYCERIN SL TABS 0.4 MG TAB SUBLINGUAL PRN ×2 (08:06→12:06)
[2019-07-27] MEDS ORDERED: HEPARIN SOD,PORK IN 0.45% NACL 25,000 UNIT in 0.45% NACL 1 250ML.BAG IV SCH (08:15)
[2019-07-27] MEDS ORDERED: FAMOTIDINE 20 MG TAB PO PRN (11:40)
--- NOTE | 2019-07-27 12:01 | ECHOF ---
Referral Reason:abn trop MEASUREMENTS -------- HEIGHT: 175.3 cm WEIGHT: 72.6 kg BP: 153/87 RVIDd: 2.7 cm (< 3.3) IVSd: 1.2 cm (0.6 - 1.1) LVIDd: 3.6 cm (3.9 - 5.3) LVPWd: 1.2 cm (0.6 - 1.1) IVSs: 1.6 cm LVIDs: 2.7 cm LVPWs: 1.5 cm LA Diam: 3.2 cm (2.7 - 3.8) LAESV Index (A-L): 22.73 ml/m Ao Diam: 3.1 cm (2.0 - 3.7) AV Cusp: 2.1 cm (1.5 - 2.6) MV EXCURSION: 17.007 mm (> 18.000) MV EF SLOPE: 61 mm/s (70 - 150) EPSS: 1.0 cm MV E Ashu: 0.76 m/s MV DecT: 229 ms MV A Ashu: 0.99 m/s MV E/A Ratio: 0.77 TAPSE: 22.86 mm FINDINGS -------- Sinus rhythm. This was a technically good study. The left ventricular size is normal. There is borderline concentric left ventricular hypertrophy. Overall left ventricular systolic function is moderately impaired with, an EF between 35 - 40 %. A pical anterior LV wall motion is hypokinetic. Apical lateral LV wall motion is hypokinetic. Api tracey inferior LV wall motion is hypokinetic. Apical septum LV wall motion is hypokinetic. The right ventricle is normal in size and function. Normal LA size by volume 22+/-6 ml/m2. The right atrium is normal in size. Interatrial and interventricular septum intact. The aortic valve is trileaflet and appears structurally normal. The mitral valve is normal. The tricuspid valve appears structurally normal. The pulmonic valve was not well visualized. The aortic root size is normal. Normal inferior vena cava with normal inspiratory collapse consistent with estimated right atrial pre ssure of 5 mmHg. There is no pericardial effusion. CONCLUSIONS -------- 1. Sinus rhythm. 2. This was a technically good study. 3. The left ventricular size is normal. 4. There is borderline concentric left ventricular hypertrophy. 5. Apical anterior LV wall motion is hypokinetic. 6. Apical lateral LV wall motion is hypokinetic. 7. Apical inferior LV wall motion is hypokinetic. 8. Apical septum LV wall motion is hypokinetic. 9. The right ventricle is normal in size and function. 10. Normal LA size by volume 22+/-6 ml/m2. 11. The right atrium is normal in size. 12. Interatrial and interventricular septum intact. 13. The aortic valve is trileaflet and appears structurally normal. 14. The mitral valve is normal. 15. The tricuspid valve appears structurally normal. 16. The pulmonic valve was not well visualized. 17. The aortic root size is normal. 18. Normal inferior vena cava with normal inspiratory collapse consistent with estimated right atrial pressure of 5 mmHg. 19. There is no pericardial effusion. FRONT OFFICE DEVELOPER: Ofelia Paulino RDCS
--- NOTE | 2019-07-27 12:04 | CONS ---
CONSULTATION CHIEF COMPLAINT: Dizziness and chest pain. This are a 64-year-old gentleman with history of TIA and underlying cardiomyopathy with an ejection fraction of around 35% and dyslipidemia, who presented to hospital with intense episodes of dizziness that started yesterday and he has had recurrent bouts, was particularly worse last night and came to the hospital and is admitted. It started actually with heartburn that happened almost a week ago. It responded to Pepcid. It was mild to moderate intensity at rest, precordial area, burning discomfort without definite radiation to neck, arm or back. Patient did not have any cardiac workup and at the time of my evaluation this morning, he appears comfortable at rest, hemodynamically stable and in no apparent distress. An echocardiogram shows wall motion abnormalities, but these are very similar to the wall motion abnormalities noted on a prior echocardiogram. Troponin is elevated at 0.1. Patient was previously admitted to hospital in February of 2018 and at that time, he had slurred speech and facial droop. He also had gait instability. He underwent evaluation at that time including CTA of the carotids and CT of the carotid that showed mild disease, but did not require carotid surgery. The patient subsequently was seen by the neurologist. I am not quite sure if he was followed further and sees Dr. Tyler, the vascular surgeon regularly. On this admission, his EKG shows sinus rhythm without acute ST-T wave changes. Troponin is mildly elevated. Echocardiogram shows LV systolic dysfunction and wall motion abnormalities very similar to what he had at last admission. The patient and his state that the patient has not had any cardiac workup. Did not have a stress test, did not have an angiogram. PAST MEDICAL HISTORY: Significant for dyslipidemia, CVA, mild carotid stenosis, and cardiomyopathy. MEDICATIONS: Include aspirin, Pepcid, Lipitor. ALLERGIES: No known drug allergies. FAMILY HISTORY: Negative for premature coronary artery disease. SOCIAL HISTORY: Negative for current smoking, EtOH abuse, or drug abuse. REVIEW OF SYSTEMS: HEENT is unremarkable. Cardiac as described above. RESPIRATORY: Negative. GI Negative. ALLERGY/IMMUNOLOGY: Negative. SKIN: Negative. MUSCULOSKELETAL: Negative for arthritis. PSYCHOSOCIAL: Negative. ENDOCRINE: Negative. DERM: Negative. CONSTITUTIONAL: Negative. ONCOLOGICAL: Negative. NEWS COMMENTATOR: Significant for dizziness. PHYSICAL EXAM: Patient is comfortable at rest. Heart rate is 68 beats per minute, blood pressure is 153/87, respiratory rate is 18. There is no jugular venous distention. Carotid upstroke is normal. There is no bruit. Chest exam reveals good air entry bilaterally. Heart exam reveals first and second heart sounds. No gallop. No murmur. Abdomen is soft, nontender. Exam of extremities did not reveal any edema. Peripheral pulses are felt. NEWS COMMENTATOR exam did not reveal focal neurological deficits. LABS: Show that the white cell count is 13.4, hemoglobin is 16, platelet count is 408, potassium is 4.8, creatinine is 0.8. The troponin is elevated. Next set of troponin is pending at this time. ASSESSMENT .: 1. Non ST-segment elevation myocardial infarction. 2. Ischemic cardiomyopathy. 3. Prior history of transient ischemic attack. PLAN: Patient will need a cardiac catheterization to evaluate his coronary anatomy. He understands risks, benefits and alternatives. In particular, he understands the risk of CVA related to cardiac catheterization given the CVA that he had last year. I explained these issues at length to the patient and his . The patient is on IV heparin at the moment. Will hold it. Once we know, when we will be able to take him for a cardiac cath, we should continue the statin in the meantime. The patient has to be started on both beta blockers and RIA inhibitors. MMODL / IJN: [id number] /
[2019-07-27] MEDS ORDERED: ALPRAZolam 0.25 MG TAB PO PRN (12:06)
[2019-07-27] MEDS ORDERED: ATORVASTATIN 80 MG TAB PO STA (12:06)
[2019-07-27] MEDS ORDERED: SODIUM CHLORIDE 0.9% 1,000 ML in EMPTY BAG 1 BAG IV ONE (12:06)
[2019-07-27] MEDS ORDERED: ASPIRIN 325 MG TAB PO STA (12:06)
[2019-07-27] MEDS ORDERED: ALPRAZolam 0.5 MG TAB PO PRN (12:06)
[2019-07-27] MEDS: LISINOPRIL 5 MG TAB PO SCH (13:34)
[2019-07-27] MEDS ORDERED: IV FLUID CONTINUATION 700 ML IV ONE (13:46)
[2019-07-27] MEDS ORDERED: MIDAZOLAM 2 MG/2 ML VIAL IV ONE (14:02)
[2019-07-27] MEDS ORDERED: LIDOCAINE 1% INJ 10MG/ML (20 ML MDV) SQ ONE (14:07)
[2019-07-27] MEDS ORDERED: fentaNYL (PF) 50 MCG/ML 2 ML AMP IV ONE (14:08)
[2019-07-27] MEDS ORDERED: IOPAMIDOL-370 125ML BTL INJ ONE (14:30)
[2019-07-27] MEDS ORDERED: RX INFO: IV CONTRAST WAS GIVEN 1 EACH MISC MISCELLANE PRN (14:54)
--- NOTE | 2019-07-27 15:58 | P.HPIM ---
History of Present Illness Patient given was provided with compensative dizziness does have mildly elevated troponin although EKG is normal patient had the wall motion abnormality this and the echocardiogram patient dizziness is mostly lightheadedness. Because of the wall motion abnormality is patient is believed to have non-ST elevation microinfarction will undergo cardiac catheterization today. Patient was also complaining of symptoms of gastroesophageal reflux disease which happened couple weeks ago can be inferior wall myocardial infarction. Patient denied any fever chills patient and any shortness of breath orthopnea paroxysmal nocturnal dyspne a. Patient does smoke cigarettes Review of Systems REVIEW OF SYSTEMS: CONSTITUTIONAL: No fever, no malaise, no fatigue. HEENT: No recent visual problems or hearing problems. Denied any sore throat. CARDIOVASCULAR: No chest pain, orthopnea, PND, no palpitations, no syncope. PULMONARY: No shortness of breath, no cough, no hemoptysis. GASTROINTESTINAL: No diarrhea, no nausea, no vomiting, no abdominal pain. NEUROLOGICAL: No headaches, no weakness, no numbness. HEMATOLOGICAL: Denies any bleeding or petechiae. GENITOURINARY: Denies any burning micturition, frequency, or urgency. MUSCULOSKELETAL/RHEUMATOLOGICAL: Denies any joint pain, swelling, or any muscle pain. ENDOCRINE: Denies any polyuria or polydipsia. The rest of the 14-point review of systems is negative. Past Medical History Past Medical History: CVA/TIA, Diabetes Mellitus Additional Past Medical History / Comment(s): pre-diabetic History of Any Multi-Drug Resistant Organisms: None Reported Past Surgical History: Hernia Repair, Orthopedic Surgery Additional Past Surgical History / Comment(s): lt knee miniscus repair,bone chips lt ankle Past Anesthesia/Blood Transfusion Reactions: No Reported Reaction Additional Past Anesthesia/Blood Transfusion Reaction / Comment(s): no hx blood transfusion Past Psychological History: No Psychological Hx Reported Smoking Status: Current every day smoker Past Alcohol Use History: Occasional Additional Past Alcohol Use History / Comment(s): started smoking at age 19- 0.5PPD Past Drug Use History: None Reported - Past Family History Mother Family Medical History: Cancer Father Family Medical History: No Reported History Medications and Allergies Home Medications Medication Instructions Recorded Confirmed Type Aspirin 325 mg PO DAILY #30 tab 03/25/18 07/27/19 Rx Atorvastatin Calcium [Lipitor] 10 mg PO HS #30 tab 03/25/18 07/27/19 Rx Famotidine [Pepcid AC] 10 mg PO HS PRN 07/27/19 07/27/19 History Famotidine [Pepcid AC] 10 mg PO QAM 07/27/19 07/27/19 History Allergies Allergy/AdvReac Type Severity Reaction Status Date / Time No Known Allergies Allergy Verified 07/27/19 07:32 Physical Exam Vitals: Vital Signs Temp Pulse Pulse Resp BP BP Pulse Ox 07/27/19 15:30 69 18 130/74 07/27/19 15:15 75 140/90 07/27/19 15:00 86 131/86 93 L 07/27/19 12:06 96.1 F L 68 18 142/85 96 07/27/19 09:03 97.7 F 68 18 153/87 97 07/27/19 08:26 65 16 129/91 98 07/27/19 07:33 71 16 143/92 97 07/27/19 05:30 97.9 F 80 20 129/78 97 Intake and Output 07/27/19 07/27/19 07/27/19 06:59 14:59 22:59 Intake Total 100 Balance 100 Intake: IV 100 Other: Weight 72.575 kg PHYSICAL EXAMINATION: GENERAL: The patient is alert and oriented x3, not in any acute distress. Well developed, well nourished. HEENT: Pupils are round and equally reacting to light. EOMI. No scleral icterus. No conjunctival pallor. Normocephalic, atraumatic. No pharyngeal erythema. No thyromegaly. CARDIOVASCULAR: S1 and S2 present. No murmurs, rubs, or gallops. PULMONARY: Chest is clear to auscultation, no wheezing or crackles. ABDOMEN: Soft, nontender, nondistended, normoactive bowel sounds. No palpable organomegaly. MUSCULOSKELETAL: No joint swelling or deformity. EXTREMITIES: No cyanosis, clubbing, or pedal edema. NEUROLOGICAL: Gross neurological examination did not reveal any focal deficits. SKIN: No rashes. Results CBC & Chem 7: 07/27/19 05:55 07/27/19 05:55 Labs: Abnormal Lab Results - Last 24 Hours (Table) 07/27/19 07/27/19 07/27/19 Range/Units 05:55 05:55 05:55 WBC 13.4 H (3.8-10.6) k/uL Eosinophils # 1.2 H (0-0.7) k/uL Chloride 109 H (98-107) mmol/L Glucose 104 H (74-99) mg/dL Troponin I 0.128 H* (0.000-0.034) ng/mL 07/27/19 Range/Units 12:00 WBC (3.8-10.6) k/uL Eosinophils # (0-0.7) k/uL Chloride (98-107) mmol/L Glucose (74-99) mg/dL Troponin I 0.731 H* (0.000-0.034) ng/mL Thrombosis Risk Factor Assmnt - Choose All That Apply Each Risk Factor Represents 2 Points: Age 61-74 years Thrombosis Risk Factor Assessment Total Risk Factor Score: 2 Thrombosis Risk Factor Assessment Level: Low Risk Assessment and Plan Plan: Possible non-ST elevation myocardial infarction: Patient is presently on IV heparin received aspirin and a statin will undergo cardiac catheterization today. -Dizziness probably secondary to myocardial infarction -Gastroesophageal reflux disease -Hyperlipidemia
--- NOTE | 2019-07-27 20:46 | PN ---
PROGRESS NOTE This is a 64-year-old gentleman who presented with dizziness, lightheadedness, was found to have elevated troponin, unremarkable EKG, but clinical picture suggests that of non-ST elevation CT without chest pain. Cardiac cath by Dr. Walter revealed that the LAD is probably a recanalized vessel with bridging collaterals in the midportion with moderate to heavy calcification. He has noncritical disease in the RCA and circumflex. The LAD and circumflex almost have 2 separate origins. There are collaterals from the distal RCA supplying almost to the distal one third of the LAD. There is also competitive flow on antegrade injection. I reviewed the images, reviewed the chart, reviewed the previous echo from February of 2018, as well as 1 from today. I spoke to the patient and at length. There is probably some viable myocardium in the LAD distribution, even though there are extensive wall motion abnormalities that have been there for the last nearly 17 months. However, I am recommending that since this is almost like a chronic occlusion with bridging collaterals, I will try to open it up tomorrow and the success rate is anywhere between 70-80 percent given the clinical picture and circumstances and the chronic nature of the occlusion. However patient's EKG reveals preserved R-waves. There is a definite hypokinesia, but I believe there may be some viable myocardium. After extensive discussion, I am recommending we will perform PTCA and stenting of this vessel. The success rate is 70% to 80%. Patient and understand the rationale, risks, benefits, options and wished to proceed with the procedure. MMDIONISIOL / IJN: [id number] /
--- NOTE | 2019-07-27 20:52 | LTR ---
DATE OF SERVICE: 07/27/2019 Dear Becca: I performed cardiac catheterization on Homero Holliday. A detailed catheterization is enclosed for your records. In brief, the cardiac catheterization reveals a 99% stenosis involving LAD and 60% to 70% stenosis involving the RCA. The patient will be treated with optimal medical therapy and the soap worker will evaluate the patient for possible multivessel angioplasty. Thank you for allowing me to participate in the care of this pleasant gentleman. Sincerely, BABS / KELSIE: [id number] /
--- NOTE | 2019-07-27 20:52 | CC ---
CARDIAC CATHETERIZATION REPORT REFERRING PHYSICIAN: Dr. Anderson Sapp. INDICATION: Non ST-segment elevation UT. PROCEDURE NOTE: After obtaining informed consent, left heart catheterization and coronary angiogram were performed via the right femoral artery using standard Rosi catheters. The patient tolerated the procedure well without any obvious immediate complications. Patient received moderate conscious sedation. Total sedation time was 19 minutes. FINDINGS: Left ventricular end-diastolic pressure is 4 mm. There is no significant gradient across the aortic valve. LEFT VENTRICULOGRAM: Left ventriculogram is not performed. ANGIOGRAPHIC DATA: LEFT MAIN CORONARY ARTERY: Left main coronary artery appears calcified but is free of significant stenosis. Divides into left anterior descending coronary artery and circumflex coronary artery. Left main coronary artery seems to be a small size vessel. In fact both LAD and circ seemed to have separate origins and I engage them separately with standard Rosi. CIRCUMFLEX CORONARY ARTERY is free of significant stenosis. LEFT ANTERIOR DESCENDING CORONARY ARTERY: LAD shows a long segment of narrowing that extends from the proximal LAD to the mid LAD and traverses a diagonal branch. At its worst, there is a 99% stenosis noted. Distal LAD shows a competitive flow from the [id number] collaterals. RIGHT CORONARY ARTERY: Right coronary artery is a large dominant vessel that shows 60% to 70% stenosis in its midportion with extensive collaterals to the distal LAD. CONCLUSION: Severe 99% stenosis involving LAD that extends from proximal to mid LAD. There is 60- 70% stenosis involving mid RCA with [id number] collaterals. Mild nonobstructive coronary artery disease involving circumflex coronary artery. PLAN: I am going to review angiographic data with Dr. Aristeo Street, and decide on multivessel angioplasty or referral for bypass surgery. MMODL / IJN: [id number] /
[2019-07-27] MEDS ORDERED: ATORVASTATIN 10 MG TAB PO SCH (21:00)
[2019-07-28 06:28] LABS: HGB 14.6 gm/dL (13.0-17.5); MCH 29.3 pg (25.0-35.0); MCHC 31.7 g/dL (31.0-37.0); MCV 92.3 fL (80.0-100.0); Platelet Count 376 k/uL (150-450); RBC 4.98 m/uL (4.30-5.90); RDW 13.9 % (11.5-15.5); WBC 13.1 k/uL (3.8-10.6)
[2019-07-28] MEDS: FAMOTIDINE 20 MG TAB PO SCH (06:29)
[2019-07-28] MEDS: METOPROLOL TARTRATE 25 MG TAB PO SCH (06:29)
[2019-07-28] MEDS: LISINOPRIL 5 MG TAB PO SCH (06:29)
[2019-07-28] MEDS: ASPIRIN 81 MG PO SCH (06:29)
[2019-07-28 06:35] LABS: African American GFR (CKD) >90 (>60 ml/min/1.73 sqM); Anion Gap 6 mmol/L; Blood Urea Nitrogen 13 mg/dL (9-20); Calcium 9.2 mg/dL (8.4-10.2); Carbon Dioxide 25 mmol/L (22-30); Chloride 110 mmol/L (98-107); Cholesterol 144 mg/dL (<200); Glucose 101 mg/dL (74-99); HDL Cholesterol 39 mg/dL (40-60); LDL Cholesterol,Calculated 87 mg/dL (0-99); Potassium 4.6 mmol/L (3.5-5.1); Sodium 141 mmol/L (137-145); Triglycerides 88 mg/dL (<150)
[2019-07-28] MEDS ORDERED: ATORVASTATIN 80 MG TAB PO STA (08:03)
[2019-07-28] MEDS ORDERED: ALPRAZolam 0.25 MG TAB PO PRN (08:03)
[2019-07-28] MEDS ORDERED: ASPIRIN 325 MG TAB PO STA (08:03)
[2019-07-28] MEDS ORDERED: SODIUM CHLORIDE 0.9% 1,000 ML in EMPTY BAG 1 BAG IV ONE (08:03)
[2019-07-28] MEDS ORDERED: NITROGLYCERIN SL TABS 0.4 MG TAB SUBLINGUAL PRN ×2 (08:03→12:31)
[2019-07-28] MEDS ORDERED: ALPRAZolam 0.5 MG TAB PO PRN (08:03)
[2019-07-28] MEDS ORDERED: ASPIRIN 325 MG TAB PO SCH (09:00)
[2019-07-28] MEDS ORDERED: METOPROLOL SUCCINATE (ER) 25 MG TAB.ER.24H PO SCH (09:00)
[2019-07-28 10:51] LABS: Glucose,Whole Blood 84 mg/dL (75-99)
[2019-07-28] MEDS ORDERED: LIDOCAINE 1% INJ 10MG/ML (20 ML MDV) ONE (11:04)
[2019-07-28] MEDS ORDERED: IV FLUID CONTINUATION 100 ML IV ONE (11:17)
[2019-07-28] MEDS ORDERED: MIDAZOLAM 2 MG/2 ML VIAL IVP ONE (11:24)
[2019-07-28] MEDS ORDERED: LIDOCAINE 1% INJ 10MG/ML (20 ML MDV) SQ ONE ×2 (11:25→11:27)
[2019-07-28] MEDS ORDERED: SODIUM CHLORIDE 0.9% 1,000 ML IV ONE (11:28)
[2019-07-28] MEDS ORDERED: LACTATED RINGERS 1,000 ML IV ONE (11:28)
[2019-07-28] MEDS ORDERED: HYDROmorphone 1 MG/ML 1 ML SYRINGE ONE (11:29)
[2019-07-28] MEDS ORDERED: HYDROmorphone 1 MG/ML 1 ML SYRINGE IVP ONE (11:31)
[2019-07-28] MEDS ORDERED: HEPARIN SODIUM 1,000 UN/ML (10ML VL) ONE (11:35)
[2019-07-28] MEDS: HEPARIN SODIUM 1,000 UN/ML (10ML VL) IV ONE ×3 (11:37→12:19)
[2019-07-28] MEDS ORDERED: TICAGRELOR 90 MG TAB ONE (12:01)
[2019-07-28] MEDS: NITROGLYCERIN 1000MCG/10ML SYRINGE INTRACORON ONE ×2 (12:03→12:18)
[2019-07-28] MEDS ORDERED: TICAGRELOR 90 MG TAB PO ONE (12:06)
[2019-07-28] MEDS ORDERED: IOPAMIDOL-370 125ML BTL INJ ONE (12:13)
[2019-07-28] MEDS ORDERED: IOPAMIDOL-370 50ML BTL INJ ONE (12:25)
[2019-07-28] MEDS ORDERED: RX INFO: IV CONTRAST WAS GIVEN 1 EACH MISC MISCELLANE PRN (12:31)
[2019-07-28] MEDS ORDERED: ATROPINE SULFATE 0.1 MG/ML 10ML SYRINGE IV PRN (12:31)
[2019-07-28] MEDS ORDERED: ZOLPIDEM 5 MG TAB PO PRN (12:31)
[2019-07-28] MEDS ORDERED: MAG HYDROX/AL HYDROX/SIMETH 30 ML CUP PO PRN (12:31)
[2019-07-28 14:07] VITALS: BMI 23.5
[2019-07-28] MEDS: SODIUM CHLORIDE 0.9% 1,000 ML IV SCH (15:05)
--- NOTE | 2019-07-28 16:32 | P.PN ---
Subjective Patient is admitted for possible non-ST elevation microinfarction patient underwent cardiac catheterization and stenting of the LAD today. Patient has ejection fraction of 35-40%. Constitutional: Denied any fatigue denied any fever. Cardio vascular: denied any chest pain, palpitations Gastrointestinal denied any nausea vomiting Pulmonary: Denied any shortness of breath cough Neurologic denied any new focal deficits All inpatient medications were reviewed and appropriate changes in these medications as dictated in the interval history and assessment and plan. Objective - Vital Signs Vital signs: Vital Signs Temp 98.1 F 07/28/19 08:15 Pulse 65 07/28/19 14:40 Resp 18 07/28/19 12:55 BP 114/68 07/28/19 15:40 Pulse Ox 93 L 07/28/19 14:40 Intake & Output 07/27/19 07/28/19 07/28/19 18:59 06:59 18:59 Intake Total 622 775 Output Total 500 300 Balance 122 475 Weight 72.2 kg 72.2 kg Intake: IV 100 175 Intake, IV Titration 300 600 Amount Sodium Chloride 0.9% 1, 600 000 ml @ 75 mls/hr IV . [id number] AMPARO Rx#:[id number] Sodium Chloride 0.9% 1, 300 000 ml @ 75 mls/hr IV . [id number] STA Rx#:[id number] Oral 222 Output: Urine 500 300 Other: # Voids 1 2 - Exam PHYSICAL EXAMINATION: GENERAL: The patient is alert and oriented x3, not in any acute distress. Well developed, well nourished. HEENT: Pupils are round and equally reacting to light. EOMI. No scleral icterus. No conjunctival pallor. Normocephalic, atraumatic. No pharyngeal erythema. No thyromegaly. CARDIOVASCULAR: S1 and S2 present. No murmurs, rubs, or gallops. PULMONARY: Chest is clear to auscultation, no wheezing or crackles. ABDOMEN: Soft, nontender, nondistended, normoactive bowel sounds. No palpable organomegaly. MUSCULOSKELETAL: No joint swelling or deformity. EXTREMITIES: No cyanosis, clubbing, or pedal edema. NEUROLOGICAL: Gross neurological examination did not reveal any focal deficits. SKIN: No rashes. - Labs CBC & Chem 7: 07/28/19 06:00 07/28/19 06:00 Labs: Abnormal Lab Results - Last 24 Hours (Table) 07/27/19 07/28/19 07/28/19 Range/Units 17:10 06:00 06:00 WBC 13.1 H (3.8-10.6) k/uL Chloride 110 H (98-107) mmol/L Glucose 101 H (74-99) mg/dL Troponin I 1.810 H* (0.000-0.034) ng/mL HDL Cholesterol 39 L (40-60) mg/dL Assessment and Plan Plan: Possible non-ST elevation myocardial infarction: She and is on dual antiplatelet therapy beta martir and statin Congestive heart failure chronic systolic dysfunction without any acute exacerbation and continue RIA inhibitor -Dizziness probably secondary to myocardial infarction -Gastroesophageal reflux disease -Hyperlipidemia
[2019-07-28] MEDS ORDERED: ATORVASTATIN 80 MG TAB PO SCH (21:00)
[2019-07-28] MEDS: TICAGRELOR 90 MG TAB PO SCH (22:50)
[2019-07-29] MEDS: SODIUM CHLORIDE 0.9% 1,000 ML IV SCH (03:32)
[2019-07-29 06:33] LABS: Basophils # (A) 0.1 k/uL (0-0.2); Basophils % (A) 1 %; Eosinophils # (A) 1.6 k/uL (0-0.7); Eosinophils % (A) 11 %; HCT 44.7 % (39.0-53.0); HGB 14.4 gm/dL (13.0-17.5); Lymphocytes % (A) 22 %; MCH 29.1 pg (25.0-35.0); MCHC 32.1 g/dL (31.0-37.0); MCV 90.7 fL (80.0-100.0); Mean Platelet Volume 6.6; Monocytes # (A) 0.8 k/uL (0-1.0); Monocytes % (A) 5 %; Neutrophils # (A) 8.3 k/uL (1.3-7.7); Neutrophils % (A) 59 %; Platelet Count 378 k/uL (150-450); RBC 4.93 m/uL (4.30-5.90); RDW 14.1 % (11.5-15.5); WBC 14.1 k/uL (3.8-10.6)
[2019-07-29 06:52] LABS: African American GFR (CKD) >90 (>60 ml/min/1.73 sqM); Anion Gap 6 mmol/L; Blood Urea Nitrogen 12 mg/dL (9-20); Calcium 9.2 mg/dL (8.4-10.2); Carbon Dioxide 23 mmol/L (22-30); Chloride 111 mmol/L (98-107); Glucose 113 mg/dL (74-99); Potassium 4.5 mmol/L (3.5-5.1); Sodium 140 mmol/L (137-145)
[2019-07-29] MEDS: ASPIRIN 81 MG PO SCH (08:18)
[2019-07-29] MEDS: LISINOPRIL 5 MG TAB PO SCH (08:19)
[2019-07-29] MEDS: TICAGRELOR 90 MG TAB PO SCH (08:19)
[2019-07-29] MEDS: METOPROLOL TARTRATE 25 MG TAB PO SCH (08:19)
[2019-07-29] MEDS: FAMOTIDINE 20 MG TAB PO SCH (08:20)
[2019-07-29 08:30] VITALS: BP 110/68; PULSE 73; RESP 17; TEMP 97.9
--- NOTE | 2019-07-29 08:36 | PTCA ---
PERCUTANEOUSTRANS CORORONARY ANGIOGRAPHY DATE OF SERVICE: 07/28/2019 PROCEDURE: PTCA and stenting of a subtotally occluded chronic mid left anterior descending coronary artery with a drug-eluting stent. PERFORMED BY: Dr. Aristeo Street. Moderate conscious sedation time was 58 minutes. CLINICAL INFORMATION: Mr. Homero Holliday is this 64-year-old gentleman admitted to the hospital with dizziness, lightheadedness and nondescript chest tightness with elevated troponin. He had a previous echo in the setting of a TIA that occurred that was about 17 months ago which revealed singular echocardiographically appearance with ejection fraction of 35%- 40% with wall motion abnormality in the LAD distribution. Given his presentation and elevated troponin, cardiac cath was performed by Dr. Walter, which revealed that LAD was subtotally occluded with collaterals from the RCA. After some discussion regarding options, I advised PCI of LAD with the understanding that this would be a relatively lower success rate. The patient and understood all details and wished to proceed with the procedure. PROCEDURE NOTE: Under local anesthesia and strict aseptic precautions, a 6-Yakut introducer placed in the right femoral artery. I used a JL3.5 guide catheter to cannulate the left coronary artery. Using a combination of a straight Super Cross catheter and a 300 mm straight whisper wire, I was able to cross the lesion. After some manipulation. I used a 1.5 12 mm Trek balloon to dilate the lesion initially and then used a 2.25 caliber 12 mm NC Trek balloon to dilate the lesion. Subsequently an 18 mm long 2.75 caliber Xience stent was deployed in the proximal portion of the lesion. Excellent angiographic result was achieved, but distally there still was an area of narrowing and I tried to advance a 2.5 caliber 8 mm Xience stent, but I could not. I then used another guidewire, which was a short Run-through guidewire and over this guidewire, I was able to advance using the first Whisper wire as a itz wire, I was able to advance a 2.5 caliber 8 mm Xience stent and deployed this distal to the previous stent telescoping into it. Excellent angiographic result was achieved without complication. Patient received heparin intravenously and his ACT was about 297. Additional 1500 units of heparin was given and went up to 390. Patient also received 180 mg of Brilinta orally. Excellent angiographic result without complication was achieved. The findings were discussed with the patient and family members including his josy. The sheath was taken out and Angio-Seal device used to secure hemostasis and he was sent to the room in a stable condition. I expect the patient can be discharged tomorrow if he remains stable. MMDIONISIOL / ANGELIN: [id number] /
--- NOTE | 2019-07-29 11:58 | P.PN ---
Subjective Progress Note Date: 07/29/19 This is a pleasant 64-year-old gentleman with history of TIA and underlying cardiomyopathy, with prior documented ejection fraction of 35%, history of hyperlipidemia, who presented to the hospital mainly with episodes of dizziness which occurred mostly when he would bend forward or turn his head from the left to the right. However a week before presenting to the hospital patient states he had episodes of what he felt was heartburn. Symptoms he had as an outpatient did respond to Pepcid. On presentation here his troponin was mildly abnormal, for this reason patient was advised to go to the cardiac catheterization lab for further evaluation and treatment. Cardiac catheterization revealed severe 99% stenosis involving the LAD that extends from the proximal to the mid LAD. There is also a 60-70% stenosis involving the mid RCA with right to left collaterals and mild nonobstructive coronary artery disease in the circumflex artery. Patient underwent angioplasty and stenting of the LAD, he was seen and examined this morning, denied any chest pain, no dizziness or lightheadedness. His right groin is soft with no evidence of any hematoma. Blood pressure 110/80, heart rate in the 70s, 96% on room air. White blood cell count 14.1, hemoglobin 14.4, platelet count 378. Sodium 140, potassium 4.5, BUN 12 and creatinine 0.7. Objective - Vital Signs Vital signs: Vital Signs Temp 97.9 F 07/29/19 08:00 Pulse 73 07/29/19 08:00 Resp 17 07/29/19 08:00 BP 110/68 07/29/19 08:00 Pulse Ox 96 07/29/19 08:00 Intake & Output 07/28/19 07/29/19 07/29/19 18:59 06:59 18:59 Intake Total 997 450 240 Output Total 300 Balance 697 450 240 Weight 72.2 kg 71.8 kg Intake: IV 175 Intake, IV Titration 600 450 Amount Sodium Chloride 0.9% 1, 600 450 000 ml @ 75 mls/hr IV . [id number] [facility] Rx#:[id number] Oral 222 240 Output: Urine 300 Other: # Voids 2 1 1 - Exam PHYSICAL EXAMINATION: GENERAL: 64-year-old gentleman in no acute distress at the time of my examination HEENT: Head is atraumatic, normocephalic. Pupils equal, round. Sclera anicteric. Conjunctiva are clear. Mucous membranes of the mouth are moist. Neck is supple. There is no elevated jugular venous pressure. No carotid bruit is heard. HEART EXAMINATION: Heart S1, S2 normal. No murmur or gallop heard. CHEST EXAMINATION: Lungs are clear to auscultation and precussion. No chest wall tenderness is noted on palpation or with deep breathing. ABDOMEN: Soft, nontender. Bowel sounds are heard. No organomegaly noted. EXTREMITIES: 2+ peripheral pulses with no evidence of peripheral edema and no calf tenderness noted. Right groin is soft, no evidence of any hematoma. NEUROLOGIC patient is awake, alert and oriented 3 . . - Labs CBC & Chem 7: 07/29/19 05:47 07/29/19 05:47 Labs: Abnormal Lab Results - Last 24 Hours (Table) 07/29/19 07/29/19 Range/Units 05:47 05:47 WBC 14.1 H (3.8-10.6) k/uL Neutrophils # 8.3 H (1.3-7.7) k/uL Eosinophils # 1.6 H (0-0.7) k/uL Chloride 111 H (98-107) mmol/L Glucose 113 H (74-99) mg/dL Assessment and Plan Plan: Assessment and plan #1 non-ST elevation DE status post angioplasty and stenting of the LAD. Patient also has a 70% lesion in the RCA. #2 history of TIA #3 hyperlipidemia #4 ischemic cardiomyopathy Plan From cardiology's perspective, patient may be able to be discharged home today. We will make him a follow-up appointment to see Dr. Walter in the office post discharge. DNP note has been reviewed, I agree with a documented findings and plan of care. Patient was seen and examined.
--- NOTE | 2019-07-29 12:39 | P.DS ---
Providers Date of admission: 07/27/19 08:03 Attending physician: Inez Feldman Consults: 07/27/19 08:06 Consult Physician Urgent Consulting Provider: [facility] Consult Reason/Comments: NSTEMI Do you want consulting provider notified?: Yes 07/28/19 12:31 Consult Physician Routine Consulting Provider: [facility] Consult Reason/Comments: Post Interventional patient Do you want consulting provider notified?: Already Contacted Primary care physician: [facility] Course: Patient is admitted for possible non-ST elevation microinfarction patient underwent cardiac catheterization and stenting of the LAD today. Patient has ejection fraction of 35-40%. 07/29/2019 Patient is euvolemic patient is clinically doing well will be discharged today discharge medication reconciliation was already done by cardiology PHYSICAL EXAMINATION: GENERAL: The patient is alert and oriented x3, not in any acute distress. Well developed, well nourished. HEENT: Pupils are round and equally reacting to light. EOMI. No scleral icterus. No conjunctival pallor. Normocephalic, atraumatic. No pharyngeal erythema. No thyromegaly. CARDIOVASCULAR: S1 and S2 present. No murmurs, rubs, or gallops. PULMONARY: Chest is clear to auscultation, no wheezing or crackles. ABDOMEN: Soft, nontender, nondistended, normoactive bowel sounds. No palpable organomegaly. MUSCULOSKELETAL: No joint swelling or deformity. EXTREMITIES: No cyanosis, clubbing, or pedal edema. NEUROLOGICAL: Gross neurological examination did not reveal any focal deficits. SKIN: No rashes. Assessment and Plan Plan: Possible non-ST elevation myocardial infarction: She and is on dual antiplatelet therapy beta martir and statin Congestive heart failure probably acute systolic dysfunction without any acute exacerbation and continue RIA inhibitor -Dizziness probably secondary to myocardial infarction -Gastroesophageal reflux disease -Hyperlipidemia Patient Condition at Discharge: Stable Plan - Discharge Summary Discharge Rx Participant: Yes New Discharge Prescriptions: New Aspirin 81 mg PO DAILY #30 chew Ticagrelor [Brilinta] 90 mg PO BID #60 tab Atorvastatin [Lipitor] 80 mg PO HS #30 tab Metoprolol Tartrate [Lopressor] 25 mg PO DAILY #30 tab Nitroglycerin Sl Tabs [Nitrostat] 0.4 mg SUBLINGUAL Q5M PRN #25 tab PRN Reason: Chest Pain Lisinopril [Zestril] 5 mg PO DAILY #30 tab Discontinued Atorvastatin Calcium [Lipitor] 10 mg PO HS #30 tab Aspirin 325 mg PO DAILY #30 tab No Action Famotidine [Pepcid AC] 10 mg PO QAM Famotidine [Pepcid AC] 10 mg PO HS PRN PRN Reason: GERD Discharge Medication List Famotidine [Pepcid AC] 10 mg PO HS PRN 07/27/19 [History] Famotidine [Pepcid AC] 10 mg PO QAM 07/27/19 [History] Aspirin 81 mg PO DAILY #30 chew 07/29/19 [Rx] Atorvastatin [Lipitor] 80 mg PO HS #30 tab 07/29/19 [Rx] Lisinopril [Zestril] 5 mg PO DAILY #30 tab 07/29/19 [Rx] Metoprolol Tartrate [Lopressor] 25 mg PO DAILY #30 tab 07/29/19 [Rx] Nitroglycerin Sl Tabs [Nitrostat] 0.4 mg SUBLINGUAL Q5M PRN #25 tab 07/29/19 [Rx] Ticagrelor [Brilinta] 90 mg PO BID #60 tab 07/29/19 [Rx] Follow up Appointment(s)/Referral(s): Anderson Sapp DO [Primary Care Provider] - 08/04/19 2:15 pm (Saturday with Eloy LEVY) Henrry Walter MD [STAFF PHYSICIAN] - 08/04/19 4:00 pm (Saturday) Patient Instructions/Handouts: *Surgery [facility] - After Heart Catheterization - Carpet Inspector Instructions, Heart Healthy Diet (DC) Activity/Diet/Wound Care/Special Instructions: pt was provided a $5/mo Brillinta coupon which he qualifies for Discharge Disposition: HOME SELF-CARE
[2019-07-29] MEDS ORDERED: ATORVASTATIN 80 MG TAB PO SCH (21:00)
== END 2019-07-29 13:09 | disposition home or self-care (01) | DRG 246 ==
LOC: EC 05:24 → 3SCARD 08:03
PROVIDERS: ADMIT Hospitalist; ATTEND Hospitalist
PROC: 4A023N7 Measurement of Cardiac Sampling and Pressure, Left Heart, Percutaneous Approach (ICD-10-PCS; 2019-07-27)
PROC: B2111ZZ Fluoroscopy of Multiple Coronary Arteries using Low Osmolar Contrast (ICD-10-PCS; 2019-07-27)
PROC: 027035Z Dilation of Coronary Artery, One Artery with Two Drug-eluting Intraluminal Devices, Percutaneous Approach (ICD-10-PCS; principal; 2019-07-28 11:05)
DX: I21.4 Non-ST elevation (NSTEMI) myocardial infarction (principal); I50.21 Acute systolic (congestive) heart failure; E11.9 Type 2 diabetes mellitus without complications; E78.5 Hyperlipidemia, unspecified; F17.210 Nicotine dependence, cigarettes, uncomplicated; H55.00 Unspecified nystagmus; I25.10 Atherosclerotic heart disease of native coronary artery without angina pectoris; I25.5 Ischemic cardiomyopathy; K21.9 Gastro-esophageal reflux disease without esophagitis; Z79.82 Long term (current) use of aspirin; Z79.899 Other long term (current) drug therapy; Z86.73 Personal history of transient ischemic attack (TIA), and cerebral infarction without residual deficits; Z87.442 Personal history of urinary calculi; I65.29 Occlusion and stenosis of unspecified carotid artery
CPT/HCPCS: 36415; 70450; 71046; 80048; 80053; 80061; 81003; 84484; 85025; 85027; 85347; 85610; 93005; 93306; 93458; 96361; 96374; 96375; 99285; C1874

== ENCOUNTER → 2019-08-20 | Outpatient (CLI) | payer MEDICAID, MEDICARE ==
--- NOTE | 2019-08-20 07:55 | US ---
EXAMINATION TYPE: US carotid duplex BILAT DATE OF EXAM: 08/20/2019 COMPARISON: CTA 03/24/18 CLINICAL HISTORY: I25.10 CAD. EXAM MEASUREMENTS: RIGHT: Peak Systolic Velocity (PSV) cm/sec ----- Right CCA: 93.0 ----- Right ICA: 93.0 ----- Right ECA: 93.0 ICA/CCA ratio: 1.0 RIGHT: End Diastole cm/sec ----- Right CCA: 28.5 ----- Right ICA: 45.0 ----- Right ECA: 22.2 LEFT: Peak Systolic Velocity (PSV) cm/sec ----- Left CCA: 91.5 ----- Left ICA: 92.8 ----- Left ECA: 83.7 ICA/CCA ratio: 1.0 LEFT: End Diastole cm/sec ----- Left CCA: 33.2 ----- Left ICA: 39.6 ----- Left ECA: 21.5 VERTEBRALS (direction of flow): Right Vertebral: Antegrade Left Vertebral: Antegrade Rhythm: Normal Calcified plaque bilateral bulbs. No increased flow velocities noted. IMPRESSION: No evidence for hemodynamically significant stenosis. Criteria for Assigning % of Stenosis / Diameter reduction (Estimation based on the indirect measurements of the internal carotid artery velocities (ICA PSV). 1. Normal (no stenosis)=ICA PSV < 125 cm/s: ratio < 2.0: ICA EDV<40 cm/s. 2. Less than 50% stenosis=ICA PSV < 125 cm/s: ratio < 2.0: ICA EDV<40 cm/s. 3. 50 to 69% stenosis=ICA PSV of 125 to 230 cm/s: ration 2.0 ? 4.0: ICA EDV 40-100 cm/s. 4. Greater than 70% stenosis to near occlusion= ICA PSV > 230 cm/s: ratio > 4.0: ICA EDV > 100 cm/s. 5. Near occlusion= ICA PSV velocities may be low or undetectable: variable ratio and ICA EDV. 6. Total occlusion=unable to detect flow.
--- NOTE | 2019-08-20 07:56 | US ---
EXAMINATION TYPE: US duplex aorta DATE OF EXAM: 08/20/2019 COMPARISON: CT 07/21/12 CLINICAL HISTORY: I25.10 CAD. EXAM MEASUREMENTS: Abdominal Aorta: Proximal: 2.7 x 2.6 cm Mid: 2.2 x 2.0 cm Distal: 1.8 x 1.7 cm Bifurcation: 1.1 cm 1.1 cm No evidence of AAA. Portion of mid Aorta obscured by bowel gas. IMPRESSION: No evidence for abdominal aortic aneurysm.
== END | disposition home or self-care (01) ==
LOC: RADUSWWP 06:55
PROVIDERS: ATTEND Internal Medicine Cardiovascular Disease
DX: I25.10 Atherosclerotic heart disease of native coronary artery without angina pectoris (principal)
CPT/HCPCS: 93880; 93979

== ENCOUNTER → 2020-10-06 | Outpatient (CLI) | payer MEDICAID, MEDICARE ==
[2020-10-06 07:29] LABS: Basophils # (A) 0.2 k/uL (0-0.2); Basophils % (A) 2 %; Eosinophils # (A) 0.8 k/uL (0-0.7); Eosinophils % (A) 7 %; HCT 46.9 % (39.0-53.0); HGB 15.2 gm/dL (13.0-17.5); Lymphocytes # (A) 2.8 k/uL (1.0-4.8); Lymphocytes % (A) 25 %; MCHC 32.4 g/dL (31.0-37.0); MCV 92.5 fL (80.0-100.0); Mean Platelet Volume 7.1; Monocytes # (A) 0.9 k/uL (0-1.0); Monocytes % (A) 8 %; Neutrophils # (A) 6.1 k/uL (1.3-7.7); Neutrophils % (A) 56 %; Platelet Count 301 k/uL (150-450); RBC 5.07 m/uL (4.30-5.90); RDW 14.2 % (11.5-15.5)
[2020-10-06 07:57] LABS: ALT 43 U/L (4-49); AST 42 U/L (17-59); African American GFR (CKD) >90 (>60 ml/min/1.73 sqM); Albumin 4.4 g/dL (3.5-5.0); Alkaline Phosphatase 118 U/L (38-126); Anion Gap 4 mmol/L; Blood Urea Nitrogen 18 mg/dL (9-20); Calcium 9.9 mg/dL (8.4-10.2); Carbon Dioxide 29 mmol/L (22-30); Chloride 108 mmol/L (98-107); Cholesterol 137 mg/dL (<200); Glucose 129 mg/dL (74-99); HDL Cholesterol 41 mg/dL (40-60); LDL Cholesterol,Calculated 72 mg/dL (0-99); Non-African American GFR(CKD) 78 (>60 ml/min/1.73 sqM); Potassium 5.3 mmol/L (3.5-5.1); Sodium 141 mmol/L (137-145); Total Bilirubin 1.1 mg/dL (0.2-1.3); Total Protein 8.1 g/dL (6.3-8.2); Triglycerides 120 mg/dL (<150)
--- NOTE | 2020-10-06 09:13 | CT ---
EXAMINATION TYPE: CT angio abdomen DATE OF EXAM: 10/06/2020 COMPARISON: 07/21/2012 HISTORY: 65-year-old male Mixed hyperlipidemia, cardiomyopathy and heart disease CT DLP: 250.4 mGycm, Automated Exposure Control for Dose Reduction was Utilized. Technique: CT scan of the abdomen performed with with IV Contrast, patient injected with 100 mL of Is ovue 370. Coronal and sagittal MIP reconstructions performed. 3-D reconstructions generated on a [employer] workstation. FINDINGS: Heart normal size without pericardial effusion. Calcified granuloma within the right lower lobe. Mild emphysematous change suggested in the lower lungs. Tiny fat-containing left Bochdalek hernia. Early arterial phase imaging of the liver, adrenal glands, spleen, and pancreas show no gross abnorma lity. 8 mm gallstone. No abnormal gallbladder distention. Nonobstructive 6 mm right renal calculus and 3 mm on the left. Redemonstrated is bilateral renal cortical cysts measuring up to 3.1 cm on the right and 4.3 cm on th e left. These show slight gradual increase in size from 2011. Previously measuring up to 1.8 and 2.6 cm on each side, respectively. No dilated small bowel, free fluid, or free air. No mesenteric or retroperitoneal lymphadenopathy. Mild stool burden. Mild diverticular change within the visualized descending colon. No pericolonic in flammation. Normal appendix. Upper abdominal aorta measures 2.4 cm. Abdominal aorta at the level of the renal arteries measures 2.2 cm. Mild fusiform dilatation of the distal abdominal aorta up to 2.2 cm. Mild left-sided calcifications within the infrarenal aorta and visualized common iliac arteries. Minimal atherosclerotic calcification at the origin of the celiac axis and trace at the origin of the SMA. Bilateral perla renal arteries are patent. The PRAFUL is patent. Bones: Moderate degenerative disc disease throughout. Hypertrophic facet arthropathy lumbar spine. Grade 1 retrolisthesis at L2-L3 on a degenerative basis. A right lateral disc osteophyte complex at L 5-S1 may impinge the extraforaminal right L5 nerve root. IMPRESSION: 1. Mild atherosclerotic calcifications infrarenal abdominal aorta and visualized common iliac arterie s. There is mild fusiform dilatation of the distal abdominal aorta up to 2.2 cm. No significant ectas ia or evidence for AAA. 2. Only minimal to mild atherosclerotic change at the origin of the celiac axis and SMA. 3. Nonobstructive renal calculi, one on either side measuring up to 6 mm. Benign renal cortical cysts measuring up to 4.3 cm have slightly increased in size from 2012. 4. 8 mm gallstone. Mild left-sided colonic diverticulosis.
--- NOTE | 2020-10-06 10:59 | ECHOF ---
Referral Reason:E78.2 I25.10 I25.5 MEASUREMENTS -------- HEIGHT: 175.3 cm WEIGHT: 79.4 kg BP: IVSd: 0.9 cm (0.6 - 1.1) LVIDd: 3.5 cm (3.9 - 5.3) LVPWd: 1.0 cm (0.6 - 1.1) IVSs: 1.5 cm LVIDs: 2.1 cm LVPWs: 1.5 cm LAESV Index (A-L): 10.44 ml/m Ao Diam: 2.8 cm (2.0 - 3.7) AV Cusp: 1.9 cm (1.5 - 2.6) LA Diam: 2.1 cm (2.7 - 3.8) MV EXCURSION: 19.089 mm (> 18.000) MV EF SLOPE: 97 mm/s (70 - 150) EPSS: 1.2 cm MV E Ashu: 0.49 m/s MV DecT: 203 ms MV A Ashu: 0.60 m/s MV E/A Ratio: 0.81 FINDINGS -------- This was a technically difficult study with suboptimal views. Left ventricular wall thickness is normal. Overall left ventricular systolic function is mildly imp aired with, an EF between 45 - 50 %. Apical inferior LV wall motion is hypokinetic. Apical septu m LV wall motion is hypokinetic. The right ventricle is normal in size. The left atrial size is normal. Normal LA size by volume 22+/-6 ml/m2. The right atrial size is normal. Lumason used The aortic valve is trileaflet and appears structurally normal. The mitral valve is normal. There is trace mitral regurgitation. The tricuspid valve appears structurally normal. Trace tricuspid regurgitation present. Right david tricular systolic pressure is normal at < 35 mmHg. There is no pulmonic regurgitation present. The aortic root size is normal. IVC Not well visulized. There is no pericardial effusion. CONCLUSIONS -------- 1. Left ventricular wall thickness is normal. 2. Overall left ventricular systolic function is mildly impaired with, an EF between 45 - 50 %. 3. Apical inferior LV wall motion is hypokinetic. 4. Apical septum LV wall motion is hypokinetic. 5. There is trace mitral regurgitation. 6. Trace tricuspid regurgitation present. 7. There is no pericardial effusion. ESCALATOR MECHANIC: Shi Zavala RDCS
--- NOTE | 2020-10-06 11:32 | ECHOS ---
STRESS ECHOCARDIOGRAM LUMASON: ____ Vial INDICATIONS: Coronary artery disease. MEDICATIONS: BASELINE HEART RATE: 76 BASELINE BLOOD PRESSURE: 93/44 MAXIMUM HEART RATE: 160 MAXIMUM BLOOD PRESSURE: 179/74 85% MPHR: 130 100% MPHR: 153 METS: 6 MAXIMUM STAGE REACHED: II TOTAL EXERCISE TIME: 5 minutes CLINICAL INFORMATION: Baseline EKG shows sinus rhythm, normal axis, normal intervals. Patient exercised on Aramis protocol for a total of 5 minutes achieving 6 METs, 100% of predicted maximal heart rate without chest pain. At peak exercise, there was 1.[address]-segment depression noted in the inferolateral leads. Baseline echo shows normal left ventricular size, mild LV dysfunction, apical hypokinesis. Postexercise, there is normal hyperdynamic response of the anterior wall, lateral wall, septum and the inferior wall, apex remains hypokinetic. CONCLUSIONS: 1. Limited exercise tolerance. 2. Abnormal stress test by EKG criteria. 3. Abnormal stress echo showing evidence of prior myocardial infarction without any evidence of stress-induced ischemia. MMODL / IJN: [id number] /
== END | disposition home or self-care (01) ==
LOC: RADCTMAIN 06:49
PROVIDERS: ATTEND Internal Medicine Cardiovascular Disease
DX: I70.0 Atherosclerosis of aorta (principal); I25.2 Old myocardial infarction; I07.1 Rheumatic tricuspid insufficiency; R94.31 Abnormal electrocardiogram [ECG] [EKG]; I25.10 Atherosclerotic heart disease of native coronary artery without angina pectoris
CPT/HCPCS: 93306; 93351; 80061; 80053; 82565; 84520; 85025; 74175; 36415; Q9950; Q9967